=== PATIENT | male | born 1955 | race African-American/Black ===

== ENCOUNTER 2017-04-06 09:25 | Emergency (ER) | payer OTHER ==
[2017-04-06 09:33] VITALS: BP 143/97; PULSE 76; TEMP 97.4; BMI 24.3
[2017-04-06] MEDS ORDERED: IBUPROFEN 600 MG TABLET (FP) PO ONE ×2 (09:43→09:47)
--- NOTE | 2017-04-06 09:44 | PDOC ---
History of Present Illness - General Chief Complaint: Pain Stated Complaint: RT NECK, RT SHOULDER PAIN Time Seen by Provider: 04/06/17 09:43 History Source: Patient - History of Present Illness Initial Comments: 04/07/17 07:10 Pt presents to the ED complaining of a 6 day history of pain in the R trapezius radiating to the R shoulder. Denies trauma. Denies fever. Pain is intermittent, sharp, and worse with turning his head to the right. Has had similar pain in the past when he "pulled a muscle", but pain usually resolved within one day. Denies headache. Past History - Past Medical History Allergies/Adverse Reactions: Allergies Allergy/AdvReac Type Severity Reaction Status Date / Time No Known Allergies Allergy Verified 04/06/17 09:27 Home Medications: Ambulatory Orders Ibuprofen [Motrin -] 600 mg PO TID PRN #10 tablet 04/06/17 Anemia: No Cardiac Disorders: No Hx Myocardial Infarction: No CVA: No COPD: No GI Disorders: Yes (hep c) HTN: No HIV: No Seizures: No Other medical history: uses hearing aid - Psycho/Social/Smoking Cessation Hx Anxiety: No Suicidal Ideation: No Smoking History: Never smoked Have you smoked in the past 12 months: No Information on smoking cessation initiated: No Hx Alcohol Use: No Drug/Substance Use Hx: No Substance Use Type: None Hx Substance Use Treatment: No Review of Systems - Review of Systems Able to Perform ROS?: Yes HEENTM: No: Symptoms Reported, See HPI, Eye Pain, Blurred Vision, Tearing, Recent change in vision, Double Vision, Cataracts, Ear Pain, Ear Discharge, Nose Congestion, Hearing Loss, Throat Pain, Throat Swelling, Mouth Pain, Dental Problems, Difficulty Swallowing, Mouth Swelling, Other Respiratory: No: Symptoms reported, See HPI, Cough, Orthopnea, Shortness of Breath, SOB with Exertion, SOB at Rest, Stridor, Wheezing, Productive cough, Hemoptysis, Other ABD/GI: No: Symptoms Reported, See HPI, Abdominal Distended, Abd. Pain w/ defecation, Blood Streaked Bowels, Constipated, Diarrhea, Difficulty Swallowing , Nausea, Poor Appetite, Poor Fluid Intake, Rectal Bleeding, Vomiting, Indigestion, Abdominal cramping, Tarry Stools, Other Neurological: No: Symptoms reported, See HPI, Headache, Numbness, Paresthesia, Pre-Existing Deficit, Seizure, Tingling, Tremors, Weakness, Unsteady Gait, Ataxia, Dizziness, Other All Other Systems: Reviewed and Negative *Physical Exam - Vital Signs Last Vital Signs Temp Pulse Resp BP Pulse Ox 97.4 F L 76 18 143/97 97 04/06/17 09:25 04/06/17 09:25 04/06/17 09:25 04/06/17 09:25 04/06/17 09:25 - Physical Exam General Appearance: Yes: Nourished, Appropriately Dressed HEENT: positive: EOMI, HELLEN. negative: Normal ENT Inspection, Normal Voice, Symmetrical, TMs Normal, Pharynx Normal, Pale Conjunctivae, Photophobia, Scleral Icterus (R), Scleral Icterus (L), Muffled/Hoarse voice, Pharyngeal Erythema, Tonsillar Exudate, Tonsillar Erythema, Nasal Congestion, Rhinorrhea, Sinus Tenderness, Orbits, Hearing Decreased, Hearing Grossly Normal, TM Bulging , TM Dull, TM Erythema, Lesions, Nelson, Excessive drooling, Thrush, Other Neck: positive: Trachea midline, Supple Respiratory/Chest: positive: Lungs Clear, Normal Breath Sounds Cardiovascular: positive: Regular Rhythm, Regular Rate, S1, S2 Gastrointestinal/Abdominal: positive: Normal Bowel Sounds, Flat, Soft. negative : Tender, Organomegaly, Pulsatile Mass, Increased Bowel Sounds, Decreased BS, Protuberent, Distended, Guarding, Rebound, Tenderness, Hernia, Mass, Hepatomegaly, Spleenomegaly, Other Musculoskeletal: positive: Normal Inspection Extremity: positive: Normal Capillary Refill, Normal Inspection Neurologic: positive: tier and detonator II-XII NML intact, Fully Oriented, Alert, Normal Mood/ Affect, Motor Strength 5/5 *DC/Admit/Observation/Transfer Diagnosis at time of Disposition: Neck pain - Discharge Dispostion Disposition: HOME Condition at time of disposition: Good Admit: No - Prescriptions Prescriptions: Ibuprofen [Motrin -] 600 mg PO TID PRN #10 tablet PRN Reason: Pain - Patient Instructions Printed Discharge Instructions: DI for Neck Pain Additional Instructions: Return to the ED for severe pain, pain with fever, severe headache, new or worsening symptoms.
== END 2017-04-06 10:20 | disposition home or self-care (01) ==
LOC: FER 09:25
DX: M54.2 Cervicalgia (principal); B19.20 Unspecified viral hepatitis C without hepatic coma
CPT/HCPCS: 99283-25

== ENCOUNTER 2022-05-08 10:26 | Inpatient (IN) | payer OTHER ==
[2022-05-08 12:08] VITALS: BMI 24.4
[2022-05-08] MEDS ORDERED: LOPERAMIDE HCL 2 MG CAPSULE PO PRN (12:20)
[2022-05-08] MEDS ORDERED: LORazepam 1 MG TABLET PO PRN (12:20)
[2022-05-08] MEDS ORDERED: ONDANSETRON *ODT* 4 MG TABLET SL PRN (12:20)
[2022-05-08] MEDS ORDERED: NICOTINE 10 MG CARTRIDGE (INHALER) IH PRN (12:20)
[2022-05-08] MEDS ORDERED: IBUPROFEN 400 MG TABLET (FP) PO PRN (12:20)
[2022-05-08] MEDS ORDERED: MAGNESIUM CITRATE 300 ML BOTTLE PO PRN (12:20)
[2022-05-08] MEDS ORDERED: cloNIDine HCL 0.1 MG TABLET PO PRN (12:20)
[2022-05-08] MEDS ORDERED: BISMUTH SUBSALICYLATE 262 MG/15 ML BTL PO PRN (12:20)
[2022-05-08] MEDS ORDERED: BENZOCAINE/MENTHOL (CHLORASEPTIC ) LOZENGE MM PRN (12:20)
[2022-05-08] MEDS ORDERED: methaDONE HCL 10 MG TABLET (FOR DETOX USE ONLY) PO ONE (12:20)
[2022-05-08] MEDS ORDERED: IBUPROFEN 600 MG TABLET (FP) PO PRN (12:20)
[2022-05-08] MEDS ORDERED: ACETAMINOPHEN 325 MG TABLET (FP) PO PRN ×2 (12:20)
[2022-05-08] MEDS ORDERED: DICYCLOMINE HCL 10 MG CAPSULE PO PRN (12:20)
[2022-05-08] MEDS ORDERED: MAG HYDROX/AL HYDROX/SIMETH 30 ML UNIT-DOSE CUP PO PRN (12:20)
[2022-05-08] MEDS ORDERED: NALOXONE HCL (KLOXXADO) 8 MG SPRAY NS PRN (12:20)
[2022-05-08] MEDS ORDERED: LORazepam 2 MG TABLET ONE (13:01)
[2022-05-08] MEDS ORDERED: methaDONE HCL 10 MG TABLET (FOR DETOX USE ONLY) ONE (13:01)
[2022-05-08] MEDS ORDERED: cloNIDine HCL 0.1 MG TABLET ONE (13:01)
[2022-05-08] MEDS: LORazepam 2 MG TABLET PO SCH ×3 (13:05→22:18)
[2022-05-08] MEDS: NICOTINE 21 MG/24 HOURS TOPICAL PATCH TD SCH (13:34)
[2022-05-08] MEDS: METHOCARBAMOL 500 MG TABLET PO PRN (17:42)
[2022-05-08] MEDS: MEMANTINE HCL 5 MG TABLET (UD) PO SCH (22:17)
[2022-05-08] MEDS: cloNIDine HCL 0.1 MG TABLET PO SCH (22:17)
[2022-05-08] MEDS: MELATONIN 5 MG TABLETS PO SCH (22:17)
[2022-05-08] MEDS: THIAMINE HCL 100 MG TABLET (FP) PO SCH (22:17)
[2022-05-08] MEDS: hydrOXYzine PAMOATE 25 MG CAPSULE (FP) PO PRN (22:21)
[2022-05-09] MEDS: LORazepam 2 MG TABLET PO SCH ×4 (06:26→22:26)
[2022-05-09] MEDS: MEMANTINE HCL 5 MG TABLET (UD) PO SCH ×2 (09:47→22:27)
[2022-05-09] MEDS: ASPIRIN 81 MG CHEWABLE TABLETS PO SCH (09:48)
[2022-05-09] MEDS: cloNIDine HCL 0.1 MG TABLET PO SCH ×2 (09:48→22:25)
[2022-05-09] MEDS: PRENATAL VITAMINS W/ FOLIC ACID TABLET (FP) PO SCH (09:49)
[2022-05-09] MEDS: NICOTINE 21 MG/24 HOURS TOPICAL PATCH TD SCH (09:50)
[2022-05-09 12:50] LABS: HEMATOCRIT 36.1 % (35.4-49); MCH 28.3 pg (25.7-33.7); MCHC 33.2 g/dl (32.0-35.9); MEAN PLT VOLUME 9.6 fl (7.5-11.1); PLATELET COUNT 232 10^3/uL (134-434); RBC 4.25 M/mm3 (4.00-5.60); RDW 12.8 % (11.9-15.9); WHITE BLOOD COUNT 7.5 K/mm3 (4.0-10.0)
[2022-05-09 13:01] LABS: ALBUMIN 3.9 g/dl (3.4-5.0); BLOOD UREA NITROGEN 21.3 mg/dL (7-18); CALCIUM 8.9 mg/dL (8.5-10.1)
[2022-05-09] MEDS ORDERED: traZODone HCL 50 MG TABLET (FP) PO PRN (13:02)
[2022-05-09 13:03] LABS: CREATININE 1.4 mg/dL (0.55-1.3)
[2022-05-09] MEDS ORDERED: COLLOIDAL OATMEAL 1 BAR EACH TP PRN (13:03)
[2022-05-09 13:05] LABS: BILIRUBIN,TOTAL 0.4 mg/dL (0.2-1); TOT PROT 7.4 g/dl (6.4-8.2)
[2022-05-09] MEDS: METHOCARBAMOL 500 MG TABLET PO PRN (17:37)
[2022-05-09] MEDS: hydrOXYzine PAMOATE 25 MG CAPSULE (FP) PO PRN ×2 (17:37→20:41)
[2022-05-09] MEDS: THIAMINE HCL 100 MG TABLET (FP) PO SCH (22:25)
[2022-05-09] MEDS: MELATONIN 5 MG TABLETS PO SCH (22:27)
[2022-05-10] MEDS: LORazepam 1 MG TABLET PO SCH ×4 (05:13→23:16)
[2022-05-10] MEDS: MAGNESIUM HYDROX 2400MG/30ML ORAL SUSPENSION 30 ML CUP PO PRN ×2 (05:14→14:51)
[2022-05-10] MEDS ORDERED: ONDANSETRON *ODT* 4 MG TABLET SL ONE (09:49)
[2022-05-10] MEDS ORDERED: methaDONE HCL 10 MG TABLET (FOR DETOX USE ONLY) PO ONE (10:00)
[2022-05-10] MEDS: NICOTINE 21 MG/24 HOURS TOPICAL PATCH TD SCH (10:12)
[2022-05-10] MEDS: PRENATAL VITAMINS W/ FOLIC ACID TABLET (FP) PO SCH (10:12)
[2022-05-10] MEDS: ASPIRIN 81 MG CHEWABLE TABLETS PO SCH (10:13)
[2022-05-10] MEDS: cloNIDine HCL 0.1 MG TABLET PO SCH ×2 (10:14→23:18)
[2022-05-10] MEDS: METHOCARBAMOL 500 MG TABLET PO PRN (10:14)
[2022-05-10] MEDS: MEMANTINE HCL 5 MG TABLET (UD) PO SCH ×2 (10:16→23:18)
[2022-05-10 21:28] VITALS: BP 128/73; PULSE 83; RESP 18; TEMP 97.1
[2022-05-10] MEDS ORDERED: traZODone HCL 100 MG TABLET (FP) PO SCH (22:00)
[2022-05-10] MEDS ORDERED: LORazepam 2 MG/ML SDV VIAL IM SCH (22:05)
[2022-05-10] MEDS: THIAMINE HCL 100 MG TABLET (FP) PO SCH (23:18)
[2022-05-11] MEDS ORDERED: LORazepam 0.5 MG TABLET PO PRN
[2022-05-11] MEDS ORDERED: LORazepam 0.5 MG TABLET PO SCH (05:00)
[2022-05-12] MEDS ORDERED: LORazepam 0.5 MG TABLET PO ONE (05:00)
[2022-05-12] MEDS ORDERED: methaDONE HCL 10 MG TABLET (FOR DETOX USE ONLY) PO ONE (10:00)
== END 2022-05-11 07:41 | disposition short-term general hospital (02) | DRG 897 ==
LOC: EDSEX → YASAS 10:26 → Y6N 13:02
PROVIDERS: ADMIT Allergy & Immunology; ATTEND Family Medicine Addiction Medicine
PROC: HZ2ZZZZ Detoxification Services for Substance Abuse Treatment (ICD-10-PCS; principal; 2022-05-08)
DX: F11.23 Opioid dependence with withdrawal (principal); F19.282 Other psychoactive substance dependence with psychoactive substance-induced sleep disorder; F19.280 Other psychoactive substance dependence with psychoactive substance-induced anxiety disorder; F10.230 Alcohol dependence with withdrawal, uncomplicated; F12.20 Cannabis dependence, uncomplicated; F17.210 Nicotine dependence, cigarettes, uncomplicated; F20.9 Schizophrenia, unspecified; F19.24 Other psychoactive substance dependence with psychoactive substance-induced mood disorder; G40.909 Epilepsy, unspecified, not intractable, without status epilepticus; I10 Essential (primary) hypertension; G30.9 Alzheimer's disease, unspecified; Z86.73 Personal history of transient ischemic attack (TIA), and cerebral infarction without residual deficits; Z86.19 Personal history of other infectious and parasitic diseases; Z91.410 Personal history of adult physical and sexual abuse
CPT/HCPCS: 36415; 80053; 85027; 86780; 93005; 93010; C9803-CS; Q0162; U0003; U0005

== ENCOUNTER 2022-05-10 22:48 | Inpatient (IN) | payer OTHER ==
[2022-05-10 23:09] VITALS: BMI 24.3
[2022-05-10] MEDS ORDERED: FOSPHENYTOIN SODIUM 100 MG/2 ML VIAL IVPUSH ONE (23:14)
[2022-05-10] MEDS ORDERED: levETIRAcetam 500 MG/5 ML INJECTION VIAL IVPB ONE ×2 (23:16)
[2022-05-10 23:35] LABS: BASO % 0.5 % (0-2.0); EOS % 2.9 % (0-4.5); HEMATOCRIT 35.3 % (35.4-49); HEMOGLOBIN 11.8 GM/dL (11.7-16.9); LYMPH % 40.3 % (8-40); MCH 28.1 pg (25.7-33.7); MCHC 33.5 g/dl (32.0-35.9); MEAN PLT VOLUME 7.7 fl (7.5-11.1); NEUT % 49.3 % (42.8-82.8); PLATELET COUNT 208 10^3/uL (134-434); RDW 12.7 % (11.9-15.9)
[2022-05-10 23:42] LABS: INR 0.95 (0.83-1.09); PROTHROMBIN TIME (PATIENT) 10.9 SEC (9.7-13.0)
[2022-05-10 23:45] LABS: ACTIVATED PTT 32.7 SECONDS (25.2-36.5)
[2022-05-10 23:57] LABS: ALBUMIN 3.5 g/dl (3.4-5.0); BLOOD UREA NITROGEN 27.3 mg/dL (7-18); CALCIUM 8.6 mg/dL (8.5-10.1); MAGNESIUM 2.4 mg/dL (1.8-2.4)
[2022-05-11] LABS: CREATININE 1.4 mg/dL (0.55-1.3)
[2022-05-11 00:02] LABS: BILIRUBIN,TOTAL 0.4 mg/dL (0.2-1); TOT PROT 6.9 g/dl (6.4-8.2)
[2022-05-11 07:26] LABS: HEMATOCRIT 33.5 % (32.4-45.2); HEMOGLOBIN 11.3 GM/dL (10.7-15.3); MCH 28.2 pg (25.7-33.7); MCHC 33.6 g/dl (32.0-36.0); MEAN PLT VOLUME 8.1 fl (7.5-11.1); PLATELET COUNT 172 10^3/uL (134-434); RBC 3.99 M/mm3 (3.60-5.2); RDW 12.6 % (11.6-15.6); WHITE BLOOD COUNT 6.3 K/mm3 (4.0-10.0)
[2022-05-11 07:48] LABS: CALCIUM 8.4 mg/dL (8.5-10.1)
[2022-05-11 07:49] LABS: BLOOD UREA NITROGEN 21.8 mg/dL (7-18); MAGNESIUM 2.5 mg/dL (1.8-2.4)
[2022-05-11 07:52] LABS: CREATININE 1.4 mg/dL (0.55-1.3); PHOSPHOROUS 3.8 mg/dL (2.5-4.9)
[2022-05-11 07:54] VITALS: RESP 14; TEMP 98
[2022-05-11] MEDS ORDERED: LORazepam 1 MG TABLET PO PRN (08:22)
[2022-05-11] MEDS ORDERED: FOLIC ACID INJECTION - 1 MG, THIAMINE HCL 100 MG, MULTIVIT INJECTION ADULT 10 ML in SOD... IVPB ONE (08:23)
[2022-05-11] MEDS ORDERED: SODIUM CHLORIDE 1,000 ML IV SCH (08:30)
[2022-05-11] MEDS ORDERED: FOLIC ACID 1 MG TABLET (FP) ONE (09:43)
[2022-05-11] MEDS ORDERED: THIAMINE HCL 100 MG TABLET (FP) ONE (09:43)
[2022-05-11] MEDS ORDERED: cloNIDine HCL 0.1 MG TABLET ONE (09:43)
[2022-05-11] MEDS ORDERED: ASPIRIN 81 MG CHEWABLE TABLETS ONE (09:43)
[2022-05-11] MEDS ORDERED: ENOXAPARIN NA (PORCINE) 40 MG/0.4 ML DISP.SYRIN SQ ONE (09:44)
[2022-05-11] MEDS ORDERED: MULTIVITAMINS (DAILY MVI) TABLET (FP) ONE (09:44)
[2022-05-11] MEDS ORDERED: MEMANTINE HCL 5 MG TABLET (UD) PO SCH (10:00)
[2022-05-11] MEDS ORDERED: ASPIRIN 81 MG CHEWABLE TABLETS PO SCH (10:00)
[2022-05-11] MEDS ORDERED: THIAMINE HCL 100 MG TABLET (FP) PO SCH (10:00)
[2022-05-11] MEDS ORDERED: cloNIDine HCL 0.1 MG TABLET PO SCH (10:00)
[2022-05-11] MEDS ORDERED: MULTIVITAMINS (DAILY MVI) TABLET (FP) PO SCH (10:00)
[2022-05-11] MEDS ORDERED: ENOXAPARIN NA (PORCINE) 40 MG/0.4 ML DISP.SYRIN SQ SCH (10:00)
[2022-05-11] MEDS ORDERED: FOLIC ACID 1 MG TABLET (FP) PO SCH (10:00)
[2022-05-11] MEDS ORDERED: methaDONE HCL 10 MG TABLET ONE (10:00)
[2022-05-11] MEDS ORDERED: LORazepam 1 MG TABLET ONE (10:33)
[2022-05-11] MEDS ORDERED: LORazepam 2 MG TABLET PO SCH (11:00)
[2022-05-11 14:34] VITALS: BP 109/72; PULSE 77
[2022-05-11] MEDS ORDERED: levETIRAcetam 250 MG TABLET PO SCH (22:00)
[2022-05-11] MEDS ORDERED: levETIRAcetam 500 MG/5 ML INJECTION VIAL IVPB SCH (23:00)
[2022-05-13] MEDS ORDERED: LORazepam 1 MG TABLET PO SCH (05:00)
[2022-05-14] MEDS ORDERED: LORazepam 0.5 MG TABLET PO PRN
[2022-05-14] MEDS ORDERED: LORazepam 0.5 MG TABLET PO SCH (05:00)
[2022-05-15] MEDS ORDERED: LORazepam 0.5 MG TABLET PO ONE (05:00)
== END 2022-05-11 14:50 | disposition other institution (70) | DRG 101 ==
LOC: EDSEX 22:48 → JER 22:48 → JERBED 05-11 00:40
PROVIDERS: ADMIT Internal Medicine; ATTEND Nurse Practitioner Acute Care
PROC: HZ2ZZZZ Detoxification Services for Substance Abuse Treatment (ICD-10-PCS; principal; 2022-05-10)
DX: R56.9 Unspecified convulsions (principal); I10 Essential (primary) hypertension; E78.5 Hyperlipidemia, unspecified; F19.10 Other psychoactive substance abuse, uncomplicated; G62.9 Polyneuropathy, unspecified
CPT/HCPCS: 36415; 71045-TC-FY; 76775-TC; 80048; 80053; 80184; 80307; 82550; 82553; 82962; 83605; 83735; 84100; 84484; 85025; 85027; 85610; 85730; 93005; 93010; 99285-25; C9803-CS; U0003; U0005

== ENCOUNTER 2022-05-11 15:51 | Inpatient (IN) | payer OTHER ==
[~2022-05-11 15:51] MED LIST: methaDONE HCL 10 MG TABLET (FOR DETOX USE ONLY) PO ONE
[2022-05-11 16:34] VITALS: BMI 25.7
[2022-05-11] MEDS ORDERED: MAGNESIUM CITRATE 300 ML BOTTLE PO PRN (16:47)
[2022-05-11] MEDS ORDERED: BENZOCAINE/MENTHOL (CHLORASEPTIC ) LOZENGE MM PRN (16:47)
[2022-05-11] MEDS ORDERED: ONDANSETRON *ODT* 4 MG TABLET SL PRN (16:47)
[2022-05-11] MEDS ORDERED: NICOTINE 10 MG CARTRIDGE (INHALER) IH PRN (16:47)
[2022-05-11] MEDS ORDERED: BISMUTH SUBSALICYLATE 524 MG/30 ML PO PRN (16:47)
[2022-05-11] MEDS ORDERED: IBUPROFEN 400 MG TABLET (FP) PO PRN (16:47)
[2022-05-11] MEDS ORDERED: IBUPROFEN 600 MG TABLET (FP) PO PRN (16:47)
[2022-05-11] MEDS ORDERED: NALOXONE HCL (KLOXXADO) 8 MG SPRAY NS PRN (16:47)
[2022-05-11] MEDS ORDERED: ACETAMINOPHEN 325 MG TABLET (FP) PO PRN ×2 (16:47)
[2022-05-11] MEDS ORDERED: DICYCLOMINE HCL 10 MG CAPSULE PO PRN (16:47)
[2022-05-11] MEDS ORDERED: MAG HYDROX/AL HYDROX/SIMETH 30 ML UNIT-DOSE CUP PO PRN (16:47)
[2022-05-11] MEDS ORDERED: MAGNESIUM HYDROX 2400MG/30ML ORAL SUSPENSION 30 ML CUP PO PRN (16:47)
[2022-05-11] MEDS ORDERED: LOPERAMIDE HCL 2 MG CAPSULE PO PRN ×2 (16:47→18:31)
[2022-05-11] MEDS: hydrOXYzine PAMOATE 25 MG CAPSULE (FP) PO SCH ×2 (17:50→22:52)
[2022-05-11] MEDS: LORazepam 1 MG TABLET PO SCH ×4 (17:50→22:53)
[2022-05-11] MEDS: ASPIRIN 81 MG CHEWABLE TABLETS PO SCH (17:50)
[2022-05-11] MEDS: THIAMINE HCL 100 MG TABLET (FP) PO SCH ×2 (17:51→22:52)
[2022-05-11] MEDS: MULTIVITAMINS (DAILY MVI) TABLET (FP) PO SCH (17:51)
[2022-05-11] MEDS: PRENATAL VITAMINS W/ FOLIC ACID TABLET (FP) PO SCH (18:24)
[2022-05-11] MEDS ORDERED: methaDONE HCL 10 MG TABLET PO ONE (18:33)
[2022-05-11] MEDS: levETIRAcetam 250 MG TABLET PO SCH (22:51)
[2022-05-11] MEDS: FOLIC ACID 1 MG TABLET (FP) PO SCH (22:52)
[2022-05-11] MEDS: cloNIDine HCL 0.1 MG TABLET PO SCH (22:52)
[2022-05-11] MEDS: MELATONIN 5 MG TABLETS PO SCH (22:52)
[2022-05-11] MEDS: MEMANTINE HCL 5 MG TABLET (UD) PO SCH (22:54)
[2022-05-12] MEDS: LORazepam 0.5 MG TABLET PO SCH ×4 (06:01→22:24)
[2022-05-12] MEDS: hydrOXYzine PAMOATE 25 MG CAPSULE (FP) PO SCH ×5 (07:13→22:25)
[2022-05-12] MEDS: ASPIRIN 81 MG CHEWABLE TABLETS PO SCH (09:53)
[2022-05-12] MEDS: levETIRAcetam 250 MG TABLET PO SCH ×2 (09:53→22:25)
[2022-05-12] MEDS: cloNIDine HCL 0.1 MG TABLET PO SCH ×2 (09:53→22:22)
[2022-05-12] MEDS: METHOCARBAMOL 500 MG TABLET PO PRN ×2 (09:53→18:04)
[2022-05-12] MEDS: MEMANTINE HCL 5 MG TABLET (UD) PO SCH ×2 (09:54→22:24)
[2022-05-12] MEDS: PRENATAL VITAMINS W/ FOLIC ACID TABLET (FP) PO SCH (09:57)
[2022-05-12] MEDS: THIAMINE HCL 100 MG TABLET (FP) PO SCH ×2 (09:57→22:25)
[2022-05-12] MEDS: MULTIVITAMINS (DAILY MVI) TABLET (FP) PO SCH (11:24)
[2022-05-12 11:34] LABS: CALCIUM 8.7 mg/dL (8.5-10.1)
[2022-05-12 11:35] LABS: ALBUMIN 3.2 g/dl (3.4-5.0); BLOOD UREA NITROGEN 22.2 mg/dL (7-18)
[2022-05-12 11:38] LABS: CREATININE 1.4 mg/dL (0.55-1.3)
[2022-05-12 11:40] LABS: BILIRUBIN,TOTAL 0.8 mg/dL (0.2-1); TOT PROT 6.5 g/dl (6.4-8.2)
[2022-05-12 11:44] LABS: HEMATOCRIT 34.9 % (32.4-45.2); HEMOGLOBIN 11.3 GM/dL (10.7-15.3); MCH 27.9 pg (25.7-33.7); MCHC 32.4 g/dl (32.0-36.0); MEAN CELL VOLUME 86.1 fl (80-96); MEAN PLT VOLUME 9.1 fl (7.5-11.1); PLATELET COUNT 136 10^3/uL (134-434); RBC 4.05 M/mm3 (3.60-5.2); RDW 12.6 % (11.6-15.6); WHITE BLOOD COUNT 4.8 K/mm3 (4.0-10.0)
[2022-05-12] MEDS: FOLIC ACID 1 MG TABLET (FP) PO SCH (12:51)
[2022-05-12] MEDS: cloNIDine HCL 0.1 MG TABLET PO PRN (14:37)
[2022-05-12] MEDS: LORazepam 0.5 MG TABLET PO PRN (15:32)
[2022-05-12] MEDS: MELATONIN 5 MG TABLETS PO SCH (22:23)
[2022-05-13] MEDS: METHOCARBAMOL 500 MG TABLET PO PRN ×2 (01:36→10:18)
[2022-05-13] MEDS: LORazepam 0.5 MG TABLET PO PRN ×2 (01:43→10:19)
[2022-05-13] MEDS ORDERED: LORazepam 0.5 MG TABLET PO ONE (05:00)
[2022-05-13] MEDS: hydrOXYzine PAMOATE 25 MG CAPSULE (FP) PO SCH ×4 (06:01→17:41)
[2022-05-13] MEDS ORDERED: FOLIC ACID 1 MG TABLET (FP) PO SCH (10:00)
[2022-05-13] MEDS ORDERED: methaDONE HCL 10 MG TABLET (FOR DETOX USE ONLY) PO ONE (10:00)
[2022-05-13] MEDS: THIAMINE HCL 100 MG TABLET (FP) PO SCH (10:18)
[2022-05-13] MEDS: levETIRAcetam 250 MG TABLET PO SCH (10:18)
[2022-05-13] MEDS: cloNIDine HCL 0.1 MG TABLET PO SCH (10:18)
[2022-05-13] MEDS: ASPIRIN 81 MG CHEWABLE TABLETS PO SCH (10:18)
[2022-05-13] MEDS: PRENATAL VITAMINS W/ FOLIC ACID TABLET (FP) PO SCH (10:22)
[2022-05-13] MEDS ORDERED: NICOTINE 7 MG/24 HOURS TOPICAL PATCH TD SCH (11:00)
[2022-05-13] MEDS: cloNIDine HCL 0.1 MG TABLET PO PRN (13:45)
[2022-05-13] MEDS: MEMANTINE HCL 5 MG TABLET (UD) PO SCH (13:46)
[2022-05-13] MEDS ORDERED: LORazepam 2 MG/ML SDV VIAL IM ONE (20:45)
[2022-05-13 21:30] VITALS: BP 145/99; PULSE 94
[2022-05-13 23:43] VITALS: RESP 20; TEMP 97
[2022-05-14] MEDS ORDERED: ACETAMINOPHEN 1000 MG/100 ML BAG IVPB ONE (01:27)
[2022-05-14] MEDS ORDERED: HEPARIN NA (PORCINE) 5,000 UNITS/ML 1ML VIAL SQ SCH (06:00)
== END 2022-05-13 23:50 | disposition short-term general hospital (02) | DRG 897 ==
LOC: YASAS 15:51 → Y6N 17:15
PROVIDERS: ADMIT Allergy & Immunology; ATTEND Surgery
PROC: HZ2ZZZZ Detoxification Services for Substance Abuse Treatment (ICD-10-PCS; principal; 2022-05-11)
DX: F11.23 Opioid dependence with withdrawal (principal); F10.230 Alcohol dependence with withdrawal, uncomplicated; F17.210 Nicotine dependence, cigarettes, uncomplicated; G40.909 Epilepsy, unspecified, not intractable, without status epilepticus; G30.9 Alzheimer's disease, unspecified; I10 Essential (primary) hypertension; W19.XXXA Unspecified fall, initial encounter; Y93.89 Activity, other specified; Y92.238 Other place in hospital as the place of occurrence of the external cause
CPT/HCPCS: 36415; 71045-TC-FY; 76775-TC; 80048; 80053; 80184; 80307; 82550; 82553; 82962; 83605; 83735; 84100; 84484; 85025; 85027; 85610; 85730; 86780; 93005; 93010; 99285-25; C9803-CS; U0003; U0005

== ENCOUNTER 2022-05-13 20:48 | Inpatient (IN) | payer OTHER ==
[2022-05-13] MEDS ORDERED: LORazepam 2 MG/ML SDV VIAL IVPUSH ONE (20:52)
[2022-05-13] MEDS ORDERED: ACETAMINOPHEN 1000 MG/100 ML BAG IVPB ONE (21:13)
[2022-05-13] MEDS ORDERED: levETIRAcetam 500 MG/5 ML INJECTION VIAL IVPB ONE ×2 (21:13→21:16)
[2022-05-13] MEDS ORDERED: SODIUM CHLORIDE 0.9% 500 ML INFUS.BAG IV ONE (21:13)
[2022-05-13] MEDS ORDERED: VALPROATE SODIUM 500 MG/5 ML VIAL ONE (21:57)
[2022-05-13] MEDS ORDERED: ACETAMINOPHEN INJECTION 100 ML IVPB ONE (21:58)
[2022-05-13] MEDS ORDERED: VALPROATE SODIUM 500 MG/5 ML VIAL IVPB SCH (22:00)
[2022-05-13 22:03] LABS: BASO % 0.5 % (0-2.0); EOS % 1.5 % (0-4.5); HEMOGLOBIN 12.9 GM/dL (10.7-15.3); LYMPH % 27.1 % (8-40); MCH 27.1 pg (25.7-33.7); MCHC 32.2 g/dl (32.0-36.0); MEAN CELL VOLUME 84.2 fl (80-96); MEAN PLT VOLUME 8.4 fl (7.5-11.1); MONO % 6.1 % (3.8-10.2); NEUT % 64.8 % (42.8-82.8); PLATELET COUNT 229 10^3/uL (134-434); RBC 4.75 M/mm3 (3.60-5.2); RDW 12.6 % (11.6-15.6); WHITE BLOOD COUNT 8.3 K/mm3 (4.0-10.0)
[2022-05-13 22:19] LABS: CALCIUM 8.7 mg/dL (8.5-10.1)
[2022-05-13 22:20] LABS: ALBUMIN 3.6 g/dl (3.4-5.0); BLOOD UREA NITROGEN 26.5 mg/dL (7-18); MAGNESIUM 2.4 mg/dL (1.8-2.4)
[2022-05-13 22:23] LABS: CREATININE 1.8 mg/dL (0.55-1.3)
[2022-05-13 22:24] LABS: LACTIC ACID 2.8 mmol/L (0.4-2.0)
[2022-05-13 22:24] LABS: BILIRUBIN,TOTAL 0.2 mg/dL (0.2-1); TOT PROT 7.1 g/dl (6.4-8.2)
[2022-05-14 02:32] LABS: EPI CELLS 31 /uL (0-25.1); HYALINE CASTS 0 /uL (0-3.1); URINE APPEARANCE CLEAR; URINE BACTERIA 162 /uL (0-1359); URINE BILIRUBIN NEGATIVE (NEGATIVE); URINE COLOR YELLOW; URINE GLUCOSE (UA) NEGATIVE (NEGATIVE); URINE KETONE NEGATIVE (NEGATIVE); URINE LEUK ESTERASE 2+ (NEGATIVE); URINE NITRITE NEGATIVE (NEGATIVE); URINE PROTEIN NEGATIVE (NEGATIVE); URINE RBC 24 /uL (0-23.9); URINE UROBILINOGEN 0.2 mg/dL (0.2-1.0); URINE WBC 33 /uL (0-25.8)
[2022-05-14] MEDS ORDERED: ACETAMINOPHEN/CAFFEINE/BUTALBITAL 1 TAB PO ONE (02:33)
[2022-05-14] MEDS ORDERED: cloNIDine HCL 0.1 MG TABLET PO ONE (02:41)
[2022-05-14] MEDS ORDERED: LACTATED RINGERS SOLUTION 1,000 ML/1,000 ML INFUS.BAG IV SCH ×2 (02:45→02:49)
[2022-05-14] MEDS ORDERED: cloNIDine HCL 0.1 MG TABLET ONE ×2 (02:47→11:35)
[2022-05-14] MEDS ORDERED: ACETAMINOPHEN/CAFFEINE/BUTALBITAL 1 TAB ONE (02:47)
[2022-05-14] MEDS ORDERED: CEFTRIAXONE 1 GM in DEXTROSE 5%-WATER - 50 ML IVPB ONE (03:34)
[2022-05-14] MEDS ORDERED: LORazepam 1 MG TABLET PO PRN (03:45)
[2022-05-14] MEDS ORDERED: FOLIC ACID INJECTION - 1 MG, THIAMINE HCL 100 MG, MULTIVIT INJECTION ADULT 10 ML in SOD... IVPB ONE (06:00)
[2022-05-14] MEDS ORDERED: LORazepam 1 MG TABLET ONE ×2 (06:11→11:36)
[2022-05-14] MEDS ORDERED: CEFTRIAXONE 1 GM/50 ML BAG ONE (06:11)
[2022-05-14] MEDS: LORazepam 1 MG TABLET PO SCH ×4 (06:24→23:25)
[2022-05-14] MEDS: HEPARIN NA (PORCINE) 5,000 UNITS/ML 1ML VIAL SQ SCH ×3 (06:24→23:28)
[2022-05-14] MEDS ORDERED: LORazepam 2 MG/ML SDV VIAL IVPUSH ONE (08:55)
[2022-05-14] MEDS ORDERED: KETOROLAC TROMETHAMINE 15 MG/ML VIAL IVPUSH ONE (09:04)
[2022-05-14] MEDS ORDERED: KETOROLAC TROMETHAMINE 15 MG/ML VIAL ONE ×2 (09:11→16:22)
[2022-05-14] MEDS ORDERED: levETIRAcetam 500 MG/5 ML INJECTION VIAL IVPB ONE (09:32)
[2022-05-14] MEDS: levETIRAcetam 500 MG/5 ML INJECTION VIAL IVPB SCH ×2 (09:37→23:24)
[2022-05-14] MEDS ORDERED: levETIRAcetam 500 MG/5 ML INJECTION VIAL IVPB SCH (10:00)
[2022-05-14 10:09] LABS: MAGNESIUM 2.1 mg/dL (1.8-2.4)
[2022-05-14 10:11] LABS: PHOSPHOROUS 3.6 mg/dL (2.5-4.9)
[2022-05-14 10:22] LABS: LACTIC ACID 2.3 mmol/L (0.4-2.0)
[2022-05-14] MEDS: cloNIDine HCL 0.1 MG TABLET PO SCH ×2 (11:40→23:24)
[2022-05-14] MEDS: TOPIRAMATE 100 MG TABLET PO SCH ×2 (11:40→23:26)
[2022-05-14] MEDS ORDERED: SUMAtriptan SUCCINATE 25 MG TABLET PO ONE (12:45)
[2022-05-14] MEDS ORDERED: IBUPROFEN 600 MG TABLET (FP) PO PRN (12:46)
[2022-05-14] MEDS ORDERED: SUMAtriptan SUCCINATE 50 MG TABLET ONE (12:51)
[2022-05-14] MEDS: ACETAMINOPHEN 1000 MG/100 ML BAG IVPB PRN ×2 (12:55→19:54)
[2022-05-14 13:21] LABS: PHENCYCLIDINE,URINE NEGATIVE (NEGATIVE); URINE BARBITURATES NEGATIVE (NEGATIVE); URINE BENZODIAZEPINES NEGATIVE (NEGATIVE)
[2022-05-14 13:22] LABS: COCAINE, UR NEGATIVE (NEGATIVE); METHADONE, UR NEGATIVE (NEGATIVE); OPIATES, URI NEGATIVE (NEGATIVE)
[2022-05-14 13:25] LABS: URINE AMPHETAMINES NEGATIVE (NEGATIVE)
[2022-05-14] MEDS ORDERED: traMADol HCL 50 MG TABLET ONE ×2 (15:26→21:07)
[2022-05-14] MEDS: traMADol HCL 50 MG TABLET PO PRN ×2 (15:28→21:42)
[2022-05-14] MEDS ORDERED: HEPARIN NA (PORCINE) 5,000 UNITS/ML 1ML VIAL ONE (15:29)
[2022-05-14] MEDS ORDERED: KETOROLAC TROMETHAMINE 30 MG/1 ML VIAL IVPUSH PRN (15:42)
[2022-05-14] MEDS ORDERED: KETOROLAC TROMETHAMINE 30 MG/1 ML VIAL IVPUSH ONE (15:47)
[2022-05-14] MEDS ORDERED: ACETAMINOPHEN INJECTION 100 ML IVPB ONE (19:48)
[2022-05-14] MEDS: SODIUM CHLORIDE 1,000 ML IV SCH (23:24)
[2022-05-15] MEDS: traMADol HCL 50 MG TABLET PO PRN (04:51)
[2022-05-15] MEDS: LORazepam 1 MG TABLET PO SCH ×4 (05:53→22:07)
[2022-05-15] MEDS: HEPARIN NA (PORCINE) 5,000 UNITS/ML 1ML VIAL SQ SCH ×3 (05:54→22:07)
[2022-05-15] MEDS ORDERED: LORazepam 2 MG/ML SDV VIAL IVPUSH ONE ×3 (09:00→10:45)
[2022-05-15] MEDS ORDERED: levETIRAcetam 500 MG/5 ML INJECTION VIAL IVPB ONE (09:36)
[2022-05-15] MEDS ORDERED: LORazepam 2 MG/ML SDV VIAL IM ONE (09:39)
[2022-05-15] MEDS ORDERED: FOSPHENYTOIN SODIUM 100 MG/2 ML VIAL IVPUSH ONE (09:44)
[2022-05-15] MEDS ORDERED: FOSPHENYTOIN SODIUM IVPB ONE ×2 (10:00)
[2022-05-15] MEDS ORDERED: SODIUM CHLORIDE IVPB ONE ×2 (10:00)
[2022-05-15] MEDS ORDERED: RAPID SEQUENCE INTUBATION KIT NR ONE (10:31)
[2022-05-15] MEDS: CEFTRIAXONE 1 GM in DEXTROSE 5%-WATER - 50 ML IVPB SCH (10:42)
[2022-05-15] MEDS: levETIRAcetam 500 MG/5 ML INJECTION VIAL IVPB SCH ×2 (10:42→22:07)
[2022-05-15] MEDS: cloNIDine HCL 0.1 MG TABLET PO SCH ×2 (11:00→22:06)
[2022-05-15] MEDS: SODIUM CHLORIDE 1,000 ML IV SCH ×2 (11:05→15:59)
[2022-05-15] MEDS: TOPIRAMATE 100 MG TABLET PO SCH ×2 (12:15→22:07)
[2022-05-15 12:26] LABS: BASO % 0.7 % (0-2.0); EOS % 1.4 % (0-4.5); HEMATOCRIT 36.4 % (32.4-45.2); HEMOGLOBIN 11.6 GM/dL (10.7-15.3); LYMPH % 25.9 % (8-40); MCH 26.8 pg (25.7-33.7); MEAN CELL VOLUME 83.9 fl (80-96); MONO % 5.2 % (3.8-10.2); NEUT % 66.8 % (42.8-82.8); PLATELET COUNT 207 10^3/uL (134-434); RBC 4.34 M/mm3 (3.60-5.2); RDW 12.6 % (11.6-15.6); WHITE BLOOD COUNT 5.5 K/mm3 (4.0-10.0)
[2022-05-15 13:22] LABS: ALBUMIN 3.8 g/dl (3.4-5.0); BLOOD UREA NITROGEN 22.2 mg/dL (7-18); MAGNESIUM 2.2 mg/dL (1.8-2.4)
[2022-05-15 13:23] LABS: CREATININE 1.6 mg/dL (0.55-1.3)
[2022-05-15 13:24] LABS: TOT PROT 7.1 g/dl (6.4-8.2)
[2022-05-15 13:25] LABS: BILIRUBIN,TOTAL 0.4 mg/dL (0.2-1)
[2022-05-15 14:08] LABS: PHOSPHOROUS 3.7 mg/dL (2.5-4.9)
[2022-05-15] MEDS: FAMOTIDINE 20 MG TABLET PO SCH (15:59)
[2022-05-15] MEDS ORDERED: MELATONIN 5 MG TABLETS PO PRN (22:37)
[2022-05-16] MEDS ORDERED: LORazepam 0.5 MG TABLET PO PRN
[2022-05-16] MEDS: ACETAMINOPHEN 325 MG TABLET (FP) PO PRN ×2 (01:37→18:52)
[2022-05-16] MEDS: HEPARIN NA (PORCINE) 5,000 UNITS/ML 1ML VIAL SQ SCH ×3 (06:05→21:17)
[2022-05-16] MEDS: LORazepam 0.5 MG TABLET PO SCH ×4 (06:05→22:42)
[2022-05-16] MEDS ORDERED: LORazepam 2 MG/ML SDV VIAL IVPUSH ONE (07:59)
[2022-05-16] MEDS ORDERED: ACETAMINOPHEN 1000 MG/100 ML BAG IVPB ONE (08:20)
[2022-05-16] MEDS: CEFTRIAXONE 1 GM in DEXTROSE 5%-WATER - 50 ML IVPB SCH (09:45)
[2022-05-16] MEDS: FAMOTIDINE 20 MG TABLET PO SCH (09:49)
[2022-05-16] MEDS: levETIRAcetam 500 MG/5 ML INJECTION VIAL IVPB SCH (09:49)
[2022-05-16] MEDS: cloNIDine HCL 0.1 MG TABLET PO SCH ×2 (09:49→21:17)
[2022-05-16] MEDS ORDERED: LACTATED RINGERS SOLUTION 1,000 ML/1,000 ML INFUS.BAG IV SCH (10:45)
[2022-05-16] MEDS: TOPIRAMATE 100 MG TABLET PO SCH ×2 (11:00→21:17)
[2022-05-16 11:30] LABS: BASO % 0.5 % (0-2.0); EOS % 1.5 % (0-4.5); HEMATOCRIT 38.3 % (32.4-45.2); HEMOGLOBIN 12.1 GM/dL (10.7-15.3); LYMPH % 11.5 % (8-40); MCH 26.4 pg (25.7-33.7); MCHC 31.5 g/dl (32.0-36.0); MEAN CELL VOLUME 83.8 fl (80-96); NEUT % 81.5 % (42.8-82.8); PLATELET COUNT 217 10^3/uL (134-434); RBC 4.57 M/mm3 (3.60-5.2); RDW 12.8 % (11.6-15.6); WHITE BLOOD COUNT 6.4 K/mm3 (4.0-10.0)
[2022-05-16 11:42] LABS: BLOOD UREA NITROGEN 18.8 mg/dL (7-18); CALCIUM 9.1 mg/dL (8.5-10.1)
[2022-05-16 11:43] LABS: ALBUMIN 3.9 g/dl (3.4-5.0); MAGNESIUM 2.1 mg/dL (1.8-2.4)
[2022-05-16 11:45] LABS: CREATININE 1.5 mg/dL (0.55-1.3); PHOSPHOROUS 3.6 mg/dL (2.5-4.9)
[2022-05-16 11:47] LABS: BILIRUBIN,TOTAL 0.4 mg/dL (0.2-1); TOT PROT 7.5 g/dl (6.4-8.2)
[2022-05-16] MEDS: LORazepam 2 MG/ML SDV VIAL IVPUSH PRN (19:32)
[2022-05-16] MEDS: levETIRAcetam 500 MG TABLET (FP) PO SCH (21:17)
[2022-05-16] MEDS: ACETAMINOPHEN/CAFFEINE/BUTALBITAL 1 TAB PO PRN (22:47)
[2022-05-17] MEDS ORDERED: QUEtiapine FUMARATE 25 MG TABLET PO ONE (00:13)
[2022-05-17] MEDS ORDERED: LORazepam 0.5 MG TABLET PO ONE (05:00)
[2022-05-17] MEDS: HEPARIN NA (PORCINE) 5,000 UNITS/ML 1ML VIAL SQ SCH ×2 (06:01→14:15)
[2022-05-17] MEDS: cloNIDine HCL 0.1 MG TABLET PO SCH (09:35)
[2022-05-17] MEDS: levETIRAcetam 500 MG TABLET (FP) PO SCH (09:37)
[2022-05-17] MEDS: FAMOTIDINE 20 MG TABLET PO SCH (09:37)
[2022-05-17] MEDS: CEFTRIAXONE 1 GM in DEXTROSE 5%-WATER - 50 ML IVPB SCH (09:38)
[2022-05-17] MEDS: TOPIRAMATE 100 MG TABLET PO SCH (09:39)
[2022-05-17] MEDS: LORazepam 2 MG/ML SDV VIAL IVPUSH PRN (10:27)
[2022-05-17] MEDS: ACETAMINOPHEN/CAFFEINE/BUTALBITAL 1 TAB PO PRN (11:59)
[2022-05-17 12:55] VITALS: BMI 24.6
[2022-05-17 13:39] LABS: CALCIUM 9.2 mg/dL (8.5-10.1)
[2022-05-17 13:40] LABS: BLOOD UREA NITROGEN 15.4 mg/dL (7-18)
[2022-05-17 13:43] LABS: CREATININE 1.5 mg/dL (0.55-1.3)
[2022-05-17] MEDS ORDERED: amLODIPine BESYLATE 2.5 MG TABLET (FP) PO SCH (17:15)
[2022-05-17 18:13] VITALS: BP 120/65; PULSE 85; RESP 16; TEMP 98.6
== END 2022-05-17 19:00 | disposition left against medical advice (07) | DRG 101 ==
LOC: JER 20:48 → JERBED 05-14 00:25 → J5S 05-14 21:51 → JICU 05-15 10:13
PROVIDERS: ADMIT Internal Medicine; ATTEND Nurse Practitioner Family
DX: G40.909 Epilepsy, unspecified, not intractable, without status epilepticus (principal); N39.0 Urinary tract infection, site not specified; F11.20 Opioid dependence, uncomplicated; E78.5 Hyperlipidemia, unspecified; I10 Essential (primary) hypertension; H53.19 Other subjective visual disturbances; F10.10 Alcohol abuse, uncomplicated; F17.210 Nicotine dependence, cigarettes, uncomplicated; R51.9 Headache, unspecified
CPT/HCPCS: 0241U-QW; 36415; 70450-TC; 70544-TC; 70551-TC; 71045-TC-FY; 80048; 80053; 80061; 80164; 80307; 81003; 82550; 82553; 82962; 83036; 83605; 83735; 84100; 84443; 85025; 87086; 93005; 93010; 97116-GP; 97162-GP; 99285-25; J1644

== ENCOUNTER 2022-07-07 10:11 | Inpatient (IN) | payer OTHER ==
[2022-07-07 10:43] VITALS: BMI 25.7
[2022-07-07] MEDS ORDERED: LOPERAMIDE HCL 2 MG CAPSULE PO PRN (11:50)
[2022-07-07] MEDS ORDERED: POLYETHYLENE GLYCOL (HEALTHYLAX) 3350 17 GM PACKET PO PRN (11:50)
[2022-07-07] MEDS ORDERED: ONDANSETRON *ODT* 4 MG TABLET SL PRN (11:50)
[2022-07-07] MEDS ORDERED: MAG HYDROX/AL HYDROX/SIMETH 30 ML UNIT-DOSE CUP PO PRN (11:50)
[2022-07-07] MEDS ORDERED: ACETAMINOPHEN 325 MG TABLET (FP) PO PRN ×2 (11:50)
[2022-07-07] MEDS ORDERED: MAGNESIUM HYDROX 2400MG/30ML ORAL SUSPENSION 30 ML CUP PO PRN (11:50)
[2022-07-07] MEDS ORDERED: IBUPROFEN 600 MG TABLET (FP) PO PRN (11:50)
[2022-07-07] MEDS ORDERED: BISMUTH SUBSALICYLATE 524 MG/30 ML PO PRN (11:50)
[2022-07-07] MEDS ORDERED: BENZOCAINE/MENTHOL (CHLORASEPTIC ) LOZENGE MM PRN (11:50)
[2022-07-07] MEDS ORDERED: IBUPROFEN 400 MG TABLET (FP) PO PRN (11:50)
[2022-07-07] MEDS ORDERED: NALOXONE HCL (KLOXXADO) 8 MG SPRAY NS PRN (11:50)
[2022-07-07] MEDS ORDERED: DICYCLOMINE HCL 10 MG CAPSULE PO PRN (11:50)
[2022-07-07] MEDS ORDERED: methaDONE HCL 10 MG TABLET (FOR DETOX USE ONLY) PO ONE (11:50)
[2022-07-07] MEDS ORDERED: levETIRAcetam 500 MG TABLET (FP) PO ONE (12:05)
[2022-07-07] MEDS ORDERED: methaDONE HCL 10 MG TABLET (FOR DETOX USE ONLY) ONE (12:12)
[2022-07-07] MEDS ORDERED: hydrOXYzine PAMOATE 25 MG CAPSULE (FP) PO ONE (12:19)
[2022-07-07] MEDS: hydrOXYzine PAMOATE 25 MG CAPSULE (FP) PO PRN ×2 (12:20→22:08)
[2022-07-07] MEDS: ASPIRIN 81 MG CHEWABLE TABLETS PO SCH (12:39)
[2022-07-07] MEDS: diazePAM 5 MG TABLET PO PRN (15:33)
[2022-07-07] MEDS: diazePAM 5 MG TABLET PO SCH ×2 (17:12→22:09)
[2022-07-07] MEDS: NICOTINE 10 MG CARTRIDGE (INHALER) IH PRN ×2 (17:16→21:15)
[2022-07-07] MEDS: MELATONIN 5 MG TABLETS PO SCH (22:08)
[2022-07-07] MEDS: THIAMINE HCL 100 MG TABLET (FP) PO SCH (22:08)
[2022-07-07] MEDS: levETIRAcetam 250 MG TABLET PO SCH (22:10)
[2022-07-08] MEDS: diazePAM 5 MG TABLET PO PRN ×3 (02:00→18:47)
[2022-07-08] MEDS: diazePAM 5 MG TABLET PO SCH ×4 (05:30→22:11)
[2022-07-08] MEDS: levETIRAcetam 250 MG TABLET PO SCH ×2 (10:11→22:10)
[2022-07-08] MEDS: hydrOXYzine PAMOATE 25 MG CAPSULE (FP) PO PRN ×2 (10:12→22:10)
[2022-07-08] MEDS: ASPIRIN 81 MG CHEWABLE TABLETS PO SCH (10:12)
[2022-07-08] MEDS: NICOTINE 10 MG CARTRIDGE (INHALER) IH PRN ×3 (10:15→21:25)
[2022-07-08] MEDS: NICOTINE 21 MG/24 HOURS TOPICAL PATCH TD SCH (10:16)
[2022-07-08] MEDS: PRENATAL VITAMINS W/ FOLIC ACID TABLET (FP) PO SCH (10:16)
[2022-07-08 11:38] LABS: HEMATOCRIT 33.1 % (32.4-45.2); HEMOGLOBIN 10.8 GM/dL (10.7-15.3); MCH 27.4 pg (25.7-33.7); MCHC 32.5 g/dl (32.0-36.0); MEAN CELL VOLUME 84.3 fl (80-96); MEAN PLT VOLUME 7.9 fl (7.5-11.1); PLATELET COUNT 193 10^3/uL (134-434); RBC 3.92 M/mm3 (3.60-5.2); RDW 13.5 % (11.6-15.6); WHITE BLOOD COUNT 6.2 K/mm3 (4.0-10.0)
[2022-07-08 11:48] LABS: CALCIUM 8.1 mg/dL (8.5-10.1)
[2022-07-08 11:49] LABS: ALBUMIN 3.2 g/dl (3.4-5.0); BLOOD UREA NITROGEN 24.6 mg/dL (7-18)
[2022-07-08 11:51] LABS: CREATININE 1.2 mg/dL (0.55-1.3)
[2022-07-08 11:53] LABS: BILIRUBIN,TOTAL 0.4 mg/dL (0.2-1); TOT PROT 6.2 g/dl (6.4-8.2)
[2022-07-08] MEDS: METHOCARBAMOL 500 MG TABLET PO PRN (16:36)
[2022-07-08] MEDS: THIAMINE HCL 100 MG TABLET (FP) PO SCH (22:10)
[2022-07-08] MEDS: MELATONIN 5 MG TABLETS PO SCH (22:10)
[2022-07-09] MEDS: diazePAM 5 MG TABLET PO PRN ×3 (00:54→17:38)
[2022-07-09] MEDS: METHOCARBAMOL 500 MG TABLET PO PRN (02:24)
[2022-07-09] MEDS: cloNIDine HCL 0.1 MG TABLET PO PRN ×4 (05:19→22:29)
[2022-07-09] MEDS: diazePAM 5 MG TABLET PO SCH ×3 (05:19→22:28)
[2022-07-09] MEDS: NICOTINE 10 MG CARTRIDGE (INHALER) IH PRN ×4 (05:29→22:37)
[2022-07-09] MEDS ORDERED: methaDONE HCL 10 MG TABLET (FOR DETOX USE ONLY) PO ONE (10:00)
[2022-07-09] MEDS: PRENATAL VITAMINS W/ FOLIC ACID TABLET (FP) PO SCH (10:02)
[2022-07-09] MEDS: levETIRAcetam 250 MG TABLET PO SCH ×2 (10:02→22:29)
[2022-07-09] MEDS: ASPIRIN 81 MG CHEWABLE TABLETS PO SCH (10:03)
[2022-07-09] MEDS: NICOTINE 21 MG/24 HOURS TOPICAL PATCH TD SCH (10:03)
[2022-07-09] MEDS: hydrOXYzine PAMOATE 25 MG CAPSULE (FP) PO PRN ×2 (17:38→22:28)
[2022-07-09] MEDS: MELATONIN 5 MG TABLETS PO SCH (22:27)
[2022-07-09] MEDS: THIAMINE HCL 100 MG TABLET (FP) PO SCH (22:28)
[2022-07-10] MEDS: METHOCARBAMOL 500 MG TABLET PO PRN ×2 (03:50→17:30)
[2022-07-10] MEDS: hydrOXYzine PAMOATE 25 MG CAPSULE (FP) PO PRN ×2 (05:46→17:30)
[2022-07-10] MEDS ORDERED: diazePAM 5 MG TABLET PO SCH (06:00)
[2022-07-10] MEDS: NICOTINE 10 MG CARTRIDGE (INHALER) IH PRN ×2 (06:01→19:42)
[2022-07-10] MEDS: ASPIRIN 81 MG CHEWABLE TABLETS PO SCH (11:27)
[2022-07-10] MEDS: PRENATAL VITAMINS W/ FOLIC ACID TABLET (FP) PO SCH (11:28)
[2022-07-10] MEDS: levETIRAcetam 250 MG TABLET PO SCH ×2 (11:28→23:04)
[2022-07-10] MEDS: NICOTINE 21 MG/24 HOURS TOPICAL PATCH TD SCH (11:28)
[2022-07-10] MEDS ORDERED: LORazepam 1 MG TABLET PO PRN (13:46)
[2022-07-10] MEDS ORDERED: LORazepam 0.5 MG TABLET PO PRN (14:00)
[2022-07-10] MEDS ORDERED: levETIRAcetam 250 MG TABLET PO ONE (14:24)
[2022-07-10] MEDS ORDERED: ASPIRIN 81 MG CHEWABLE TABLETS PO ONE (14:25)
[2022-07-10] MEDS: LORazepam 0.5 MG TABLET PO SCH ×2 (17:29→23:04)
[2022-07-10] MEDS: THIAMINE HCL 100 MG TABLET (FP) PO SCH (23:03)
[2022-07-10] MEDS: MELATONIN 5 MG TABLETS PO SCH (23:03)
[2022-07-11] MEDS: METHOCARBAMOL 500 MG TABLET PO PRN ×2 (03:38→17:25)
[2022-07-11] MEDS: hydrOXYzine PAMOATE 25 MG CAPSULE (FP) PO PRN (03:38)
[2022-07-11] MEDS ORDERED: LORazepam 0.5 MG TABLET PO ONE (05:00)
[2022-07-11] MEDS: NICOTINE 10 MG CARTRIDGE (INHALER) IH PRN ×3 (05:59→18:42)
[2022-07-11] MEDS ORDERED: diazePAM 5 MG TABLET PO ONE (06:00)
[2022-07-11] MEDS ORDERED: methaDONE HCL 10 MG TABLET (FOR DETOX USE ONLY) PO ONE (10:00)
[2022-07-11] MEDS: ASPIRIN 81 MG CHEWABLE TABLETS PO SCH (10:08)
[2022-07-11] MEDS: levETIRAcetam 250 MG TABLET PO SCH ×2 (10:08→23:09)
[2022-07-11] MEDS: PRENATAL VITAMINS W/ FOLIC ACID TABLET (FP) PO SCH (10:08)
[2022-07-11] MEDS: NICOTINE 21 MG/24 HOURS TOPICAL PATCH TD SCH (10:09)
[2022-07-11] MEDS: LORazepam 0.5 MG TABLET PO PRN ×2 (11:49→17:26)
[2022-07-11] MEDS: hydrOXYzine PAMOATE 50 MG CAPSULE (FP) PO PRN ×2 (13:09→17:25)
[2022-07-11 17:12] VITALS: TEMP 97.1
[2022-07-11] MEDS ORDERED: LORazepam 2 MG/ML SDV VIAL IM ONE (20:40)
[2022-07-11 21:59] VITALS: BP 156/97; PULSE 94; RESP 16
[2022-07-11] MEDS ORDERED: traZODone HCL 100 MG TABLET (FP) PO SCH (22:00)
[2022-07-11] MEDS: THIAMINE HCL 100 MG TABLET (FP) PO SCH (23:09)
[2022-07-13] MEDS ORDERED: LORazepam 0.5 MG TABLET PO SCH (05:00)
[2022-07-14] MEDS ORDERED: LORazepam 0.5 MG TABLET PO ONE (05:00)
== END 2022-07-12 06:32 | disposition short-term general hospital (02) | DRG 897 ==
LOC: YASAS 10:11 → Y6N 12:04
PROVIDERS: ADMIT Allergy & Immunology; ATTEND Surgery
PROC: HZ2ZZZZ Detoxification Services for Substance Abuse Treatment (ICD-10-PCS; principal; 2022-07-07)
DX: F11.23 Opioid dependence with withdrawal (principal); F19.282 Other psychoactive substance dependence with psychoactive substance-induced sleep disorder; F19.280 Other psychoactive substance dependence with psychoactive substance-induced anxiety disorder; F10.230 Alcohol dependence with withdrawal, uncomplicated; F17.210 Nicotine dependence, cigarettes, uncomplicated; F19.24 Other psychoactive substance dependence with psychoactive substance-induced mood disorder; F31.9 Bipolar disorder, unspecified; F41.9 Anxiety disorder, unspecified; G40.909 Epilepsy, unspecified, not intractable, without status epilepticus; G30.9 Alzheimer's disease, unspecified; F02.80 Dementia in other diseases classified elsewhere, unspecified severity, without behavioral disturbance, psychotic disturbance, mood disturbance, and anxiety; I10 Essential (primary) hypertension; Z86.73 Personal history of transient ischemic attack (TIA), and cerebral infarction without residual deficits; Z91.410 Personal history of adult physical and sexual abuse; Z86.19 Personal history of other infectious and parasitic diseases
CPT/HCPCS: 36415; 80053; 80177; 81025; 82962; 85027; 86780; C9803-CS; U0003; U0005

== ENCOUNTER 2022-07-11 21:22 | Inpatient (IN) | payer OTHER ==
[2022-07-11] MEDS ORDERED: levETIRAcetam 500 MG/5 ML INJECTION VIAL IVPB ONE ×2 (21:45→22:28)
[2022-07-11] MEDS ORDERED: diazePAM CARPU-JECT 10 MG/2 ML DISP.SYRIN ONE (22:04)
[2022-07-11] MEDS ORDERED: LORazepam 2 MG/ML SDV VIAL IVPUSH ONE ×2 (22:26→22:29)
[2022-07-11] MEDS ORDERED: LORazepam 2 MG/ML SDV VIAL IM ONE ×2 (22:27→22:28)
[2022-07-11] MEDS ORDERED: diazePAM CARPU-JECT 10 MG/2 ML DISP.SYRIN IVPUSH ONE (22:28)
[2022-07-11 22:44] LABS: BASO % 0.6 % (0-2.0); EOS % 4.5 % (0-4.5); HEMATOCRIT 33.6 % (32.4-45.2); HEMOGLOBIN 10.9 GM/dL (10.7-15.3); LYMPH % 34.7 % (8-40); MCH 27.1 pg (25.7-33.7); MCHC 32.4 g/dl (32.0-36.0); MEAN CELL VOLUME 83.5 fl (80-96); MEAN PLT VOLUME 7.7 fl (7.5-11.1); MONO % 10.2 % (3.8-10.2); PLATELET COUNT 198 10^3/uL (134-434); RBC 4.02 M/mm3 (3.60-5.2); RDW 13.8 % (11.6-15.6)
[2022-07-11 22:51] LABS: INR 0.91 (0.83-1.09); PROTHROMBIN TIME (PATIENT) 10.5 SEC (9.7-13.0)
[2022-07-11 22:54] LABS: ACTIVATED PTT 32.3 SECONDS (25.2-36.5)
[2022-07-11] MEDS ORDERED: ACETAMINOPHEN 1000 MG/100 ML BAG IVPB ONE (22:59)
[2022-07-11] MEDS ORDERED: ACETAMINOPHEN INJECTION 100 ML IVPB ONE (23:03)
[2022-07-11 23:12] LABS: CHLORIDE 106 mmol/L (98-107); SODIUM 143 mmol/L (136-145)
[2022-07-11 23:14] LABS: ALBUMIN 3.6 g/dl (3.4-5.0); ANION GAP 8 MMOL/L (8-16); CALCIUM 9.3 mg/dL (8.5-10.1); CO2 29 mmol/L (21-32)
[2022-07-11 23:15] LABS: BLOOD UREA NITROGEN 31.5 mg/dL (7-18); GLUCOSE,RANDOM 86 mg/dL (74-106)
[2022-07-11 23:17] LABS: CREATININE 1.5 mg/dL (0.55-1.3); SGOT/AST 27 U/L (15-37)
[2022-07-11 23:18] LABS: SGPT/ALT 18 U/L (13-61)
[2022-07-11 23:19] LABS: BILIRUBIN,TOTAL 0.3 mg/dL (0.2-1); TOT PROT 6.8 g/dl (6.4-8.2)
[2022-07-11 23:20] LABS: ALK PHOS 168 U/L (45-117)
[2022-07-11] MEDS ORDERED: ACETAMINOPHEN 500 MG TABLET (FP) PO PRN (23:51)
[2022-07-11] MEDS ORDERED: MELATONIN 5 MG TABLETS PO PRN (23:51)
[2022-07-12] MEDS ORDERED: diazePAM CARPU-JECT 10 MG/2 ML DISP.SYRIN ONE (00:36)
[2022-07-12] MEDS ORDERED: PROPOFOL 1,000,000 MCG/100 ML VIAL ONE (00:39)
[2022-07-12] MEDS ORDERED: RAPID SEQUENCE INTUBATION KIT NR ONE (00:44)
[2022-07-12] MEDS ORDERED: ETOMIDATE 40 MG/20 ML VIAL IVPUSH ONE (00:57)
[2022-07-12] MEDS ORDERED: ROCURONIUM BROMIDE 50 MG/5 ML VIAL IVPUSH ONE (00:57)
[2022-07-12] MEDS ORDERED: PROPOFOL 200 MG/20 ML VIAL IVPUSH ONE ×2 (01:04→01:16)
[2022-07-12] MEDS: PROPOFOL 1,000,000 MCG/100 ML VIAL IVPB SCH ×2 (01:05→10:00)
[2022-07-12] MEDS: FENTANYL NS IVPB 500 MCG/100 ML BAG IVPB SCH ×2 (01:10→18:04)
[2022-07-12 01:22] LABS: MAGNESIUM 2.2 mg/dL (1.8-2.4)
[2022-07-12 01:25] LABS: PHOSPHOROUS 3.7 mg/dL (2.5-4.9)
[2022-07-12 01:46] LABS: ARTERIAL BLD GAS O2 SATURATION 99.8 % (95-98); ARTERIAL BLOOD GAS BASE EXCESS 0.2 mmol/L (-2-2); ARTERIAL BLOOD GAS PO2 417.9 mmHg (80-100); ARTERIAL BLOOD GAS pH 7.326 (7.350-7.450)
[2022-07-12] MEDS ORDERED: MIDAZOLAM IN 0.9 % SOD.CHLORID 1 MG/1 ML PLAST..BAG ONE (02:27)
[2022-07-12] MEDS ORDERED: MIDAZOLAM 100 MG in SODIUM CHLORIDE 100 ML IVPB SCH (02:30)
[2022-07-12 02:50] LABS: URINE APPEARANCE CLEAR; URINE BILIRUBIN NEGATIVE (NEGATIVE); URINE COLOR YELLOW; URINE GLUCOSE (UA) NEGATIVE (NEGATIVE); URINE KETONE NEGATIVE (NEGATIVE); URINE LEUK ESTERASE NEGATIVE (NEGATIVE); URINE NITRITE NEGATIVE (NEGATIVE); URINE PROTEIN TRACE (NEGATIVE); URINE UROBILINOGEN 0.2 mg/dL (0.2-1.0)
[2022-07-12 02:54] LABS: COCAINE, UR NEGATIVE (NEGATIVE); OPIATES, URI NEGATIVE (NEGATIVE); PHENCYCLIDINE,URINE NEGATIVE (NEGATIVE)
[2022-07-12 02:55] LABS: METHADONE, UR POSITIVE (NEGATIVE); URINE AMPHETAMINES NEGATIVE (NEGATIVE); URINE BARBITURATES NEGATIVE (NEGATIVE); URINE BENZODIAZEPINES POSITIVE (NEGATIVE)
[2022-07-12] MEDS: MIDAZOLAM IN 0.9 % SOD.CHLORID 100 MG/100 ML PLAST..BAG IVPB SCH ×2 (03:22→18:04)
[2022-07-12] MEDS ORDERED: ACETAMINOPHEN 500 MG TABLET (FP) PO PRN (05:00)
[2022-07-12 07:06] LABS: ARTERIAL BLD GAS O2 SATURATION 99.9 % (95-98); ARTERIAL BLOOD GAS BASE EXCESS 1.9 mmol/L (-2-2); ARTERIAL BLOOD GAS PO2 479.6 mmHg (80-100); ARTERIAL BLOOD GAS pH 7.356 (7.350-7.450)
[2022-07-12] MEDS ORDERED: PNEUMOC 20-VAL CONJ-DIP CRM/PF 0.5 ML SYRINGE IM ONE (07:09)
[2022-07-12 07:13] LABS: VENT MODE V/A/C; VENT RATE 14
[2022-07-12] MEDS: HEPARIN NA (PORCINE) 5,000 UNITS/ML 1ML VIAL SQ SCH ×3 (07:31→21:27)
[2022-07-12 07:33] LABS: BASO % 0.6 % (0-2.0); EOS % 3.1 % (0-4.5); HEMATOCRIT 35.8 % (32.4-45.2); HEMOGLOBIN 11.5 GM/dL (10.7-15.3); LYMPH % 24.6 % (8-40); MCH 27.2 pg (25.7-33.7); MCHC 32.2 g/dl (32.0-36.0); MEAN CELL VOLUME 84.4 fl (80-96); MEAN PLT VOLUME 7.7 fl (7.5-11.1); MONO % 10.9 % (3.8-10.2); NEUT % 60.8 % (42.8-82.8); PLATELET COUNT 175 10^3/uL (134-434); RBC 4.24 M/mm3 (3.60-5.2); RDW 13.7 % (11.6-15.6); WHITE BLOOD COUNT 8.3 K/mm3 (4.0-10.0)
[2022-07-12 07:51] LABS: ALBUMIN 3.4 g/dl (3.4-5.0); CALCIUM 8.7 mg/dL (8.5-10.1); MAGNESIUM 2.3 mg/dL (1.8-2.4)
[2022-07-12 07:52] LABS: BLOOD UREA NITROGEN 29.5 mg/dL (7-18)
[2022-07-12 07:54] LABS: CREATININE 1.4 mg/dL (0.55-1.3); PHOSPHOROUS 5.1 mg/dL (2.5-4.9)
[2022-07-12 07:56] LABS: BILIRUBIN,TOTAL 0.4 mg/dL (0.2-1); TOT PROT 6.6 g/dl (6.4-8.2)
[2022-07-12] MEDS ORDERED: amLODIPine BESYLATE 2.5 MG TABLET (FP) PO SCH (10:00)
[2022-07-12] MEDS: levETIRAcetam 500 MG/5 ML INJECTION VIAL IVPB SCH ×2 (10:30→21:26)
[2022-07-12] MEDS: DEXMEDETOMIDINE PREMIX 400 MCG/100 ML BAG IVPB SCH (10:30)
[2022-07-12] MEDS: FAMOTIDINE 20 MG/50 ML IVPB 20 MG/50 ML MG IVPB SCH ×2 (10:30→21:28)
[2022-07-12] MEDS: MUPIROCIN 2% TOPICAL OINTMENT FOR DECOLONIZATION NS SCH ×2 (10:31→21:28)
[2022-07-12] MEDS: SODIUM CHLORIDE 1,000 ML IV SCH (11:04)
[2022-07-12] MEDS: CHLORHEXIDINE GLUCONATE 4% CLEANSER FOR DECOLONIZATION TP SCH (21:28)
[2022-07-13] MEDS ORDERED: SODIUM CHLORIDE 500 ML IV STA ×2 (03:17→06:39)
[2022-07-13] MEDS: PROPOFOL 1,000,000 MCG/100 ML VIAL IVPB SCH ×2 (03:38→19:30)
[2022-07-13] MEDS: FENTANYL NS IVPB 500 MCG/100 ML BAG IVPB SCH (03:39)
[2022-07-13] MEDS: HEPARIN NA (PORCINE) 5,000 UNITS/ML 1ML VIAL SQ SCH ×3 (06:05→21:09)
[2022-07-13] MEDS: MUPIROCIN 2% TOPICAL OINTMENT FOR DECOLONIZATION NS SCH ×2 (10:11→21:09)
[2022-07-13] MEDS: FAMOTIDINE 20 MG/50 ML IVPB 20 MG/50 ML MG IVPB SCH ×2 (10:11→21:00)
[2022-07-13] MEDS: levETIRAcetam 500 MG/5 ML INJECTION VIAL IVPB SCH ×2 (10:11→21:00)
[2022-07-13] MEDS: DEXMEDETOMIDINE PREMIX 400 MCG/100 ML BAG IVPB SCH ×2 (10:11→22:51)
[2022-07-13] MEDS: SODIUM CHLORIDE 1,000 ML IV SCH ×2 (10:11→16:31)
[2022-07-13] MEDS ORDERED: LORazepam 2 MG/ML SDV VIAL IVPUSH ONE (13:54)
[2022-07-13 15:32] VITALS: BMI 28.5
[2022-07-13] MEDS: CHLORHEXIDINE GLUCONATE 4% CLEANSER FOR DECOLONIZATION TP SCH (21:00)
[2022-07-14] MEDS ORDERED: ACETAMINOPHEN 1000 MG/100 ML BAG IVPB ONE (00:59)
[2022-07-14] MEDS: PROPOFOL 1,000,000 MCG/100 ML VIAL IVPB SCH (01:00)
[2022-07-14] MEDS: FENTANYL NS IVPB 500 MCG/100 ML BAG IVPB SCH (01:00)
[2022-07-14] MEDS ORDERED: NITROGLYCERIN 25MG/D5W 250ML 25 MG/250 ML ML IVPB ONE (01:16)
[2022-07-14] MEDS: HEPARIN NA (PORCINE) 5,000 UNITS/ML 1ML VIAL SQ SCH (05:32)
[2022-07-14 07:44] LABS: BASO % 0.2 % (0-2.0); EOS % 0.4 % (0-4.5); HEMOGLOBIN 9.4 GM/dL (10.7-15.3); LYMPH % 12.4 % (8-40); MCH 26.9 pg (25.7-33.7); MCHC 32.5 g/dl (32.0-36.0); MEAN CELL VOLUME 82.9 fl (80-96); MEAN PLT VOLUME 8.4 fl (7.5-11.1); MONO % 7.5 % (3.8-10.2); NEUT % 79.5 % (42.8-82.8); PLATELET COUNT 154 10^3/uL (134-434); RBC 3.49 M/mm3 (3.60-5.2); RDW 13.1 % (11.6-15.6); WHITE BLOOD COUNT 9.4 K/mm3 (4.0-10.0)
[2022-07-14 08:06] LABS: BLOOD UREA NITROGEN 23.8 mg/dL (7-18); CALCIUM 8.4 mg/dL (8.5-10.1)
[2022-07-14 08:09] LABS: CREATININE 1.2 mg/dL (0.55-1.3)
[2022-07-14 08:11] LABS: BILIRUBIN,TOTAL 0.9 mg/dL (0.2-1); TOT PROT 5.9 g/dl (6.4-8.2)
[2022-07-14] MEDS: levETIRAcetam 500 MG/5 ML INJECTION VIAL IVPB SCH (09:22)
[2022-07-14] MEDS: FAMOTIDINE 20 MG/50 ML IVPB 20 MG/50 ML MG IVPB SCH (09:23)
[2022-07-14] MEDS: MUPIROCIN 2% TOPICAL OINTMENT FOR DECOLONIZATION NS SCH (10:00)
[2022-07-14 14:07] VITALS: BP 141/78; PULSE 88; RESP 20; TEMP 99.2
[2022-07-14] MEDS ORDERED: clonazePAM 0.5 MG TABLET PO STA (14:37)
[2022-07-14] MEDS ORDERED: PHENobarbital 20 MG/5 ML UNIT-DOSE CUP PO STA (14:42)
[2022-07-14] MEDS ORDERED: levETIRAcetam 500 MG TABLET (FP) PO SCH (22:00)
== END 2022-07-14 15:15 | disposition left against medical advice (07) | DRG 100 ==
LOC: JER 21:22 → JERBED 23:22 → JICU 07-12 06:39
PROVIDERS: ADMIT Internal Medicine Pulmonary Disease; ATTEND Internal Medicine Pulmonary Disease
PROC: 5A1945Z Respiratory Ventilation, 24-96 Consecutive Hours (ICD-10-PCS; principal; 2022-07-12)
PROC: 0BH17EZ Insertion of Endotracheal Airway into Trachea, Via Natural or Artificial Opening (ICD-10-PCS; 2022-07-12)
PROC: 02HV33Z Insertion of Infusion Device into Superior Vena Cava, Percutaneous Approach (ICD-10-PCS; 2022-07-12)
PROC: B548ZZA Ultrasonography of Superior Vena Cava, Guidance (ICD-10-PCS; 2022-07-12)
DX: G40.901 Epilepsy, unspecified, not intractable, with status epilepticus (principal); J96.90 Respiratory failure, unspecified, unspecified whether with hypoxia or hypercapnia; F10.230 Alcohol dependence with withdrawal, uncomplicated; F19.20 Other psychoactive substance dependence, uncomplicated; F11.23 Opioid dependence with withdrawal; Z86.73 Personal history of transient ischemic attack (TIA), and cerebral infarction without residual deficits; I12.9 Hypertensive chronic kidney disease with stage 1 through stage 4 chronic kidney disease, or unspecified chronic kidney disease; N18.9 Chronic kidney disease, unspecified; F41.8 Other specified anxiety disorders; I95.89 Other hypotension; G25.2 Other specified forms of tremor; Z53.29 Procedure and treatment not carried out because of patient's decision for other reasons
CPT/HCPCS: 0241U-QW; 36415; 36600; 70450-TC; 71045-TC-FY; 72125-TC; 80053; 80307; 81003; 82436; 82550; 82553; 82570; 82803; 82962; 83605; 83735; 84100; 84133; 84146; 84156; 84300; 84443; 84484; 84703; 85025; 85610; 85730; 87040; 87086; 93005; 93010; 94002; 99291; J1644

== ENCOUNTER 2023-02-07 07:09 | Inpatient (IN) | payer OTHER ==
[2023-02-07 08:58] VITALS: BMI 28.9
[2023-02-07] MEDS ORDERED: ACETAMINOPHEN 325 MG TABLET (FP) PO PRN (09:15)
[2023-02-07] MEDS ORDERED: BISMUTH SUBSALICYLATE 262 MG/15 ML BTL PO PRN (09:15)
[2023-02-07] MEDS ORDERED: methaDONE HCL 10 MG TABLET (FOR DETOX USE ONLY) PO ONE (09:15)
[2023-02-07] MEDS ORDERED: IBUPROFEN 400 MG TABLET (FP) PO PRN (09:15)
[2023-02-07] MEDS ORDERED: POLYETHYLENE GLYCOL (HEALTHYLAX) 3350 17 GM PACKET PO PRN (09:15)
[2023-02-07] MEDS ORDERED: BENZONATATE 200 MG CAPSULE PO PRN (09:15)
[2023-02-07] MEDS ORDERED: guaiFENesin 600 MG TABLET.ER (FP) PO PRN (09:15)
[2023-02-07] MEDS ORDERED: NALOXONE HCL 0.4 MG/ML VIAL IM PRN (09:15)
[2023-02-07] MEDS ORDERED: LOPERAMIDE HCL 2 MG CAPSULE PO PRN (09:15)
[2023-02-07] MEDS ORDERED: METHOCARBAMOL 500 MG TABLET PO PRN (09:15)
[2023-02-07] MEDS ORDERED: MAG HYDROX/AL HYDROX/SIMETH 30 ML UNIT-DOSE CUP PO PRN (09:15)
[2023-02-07] MEDS ORDERED: cloNIDine HCL 0.1 MG TABLET PO PRN (09:15)
[2023-02-07] MEDS ORDERED: BENZOCAINE/MENTHOL (CHLORASEPTIC ) LOZENGE MM PRN (09:15)
[2023-02-07] MEDS ORDERED: ONDANSETRON *ODT* 4 MG TABLET SL PRN (09:15)
[2023-02-07] MEDS ORDERED: MAGNESIUM HYDROX 2400MG/30ML ORAL SUSPENSION 30 ML CUP PO PRN (09:15)
[2023-02-07] MEDS ORDERED: hydrOXYzine PAMOATE 25 MG CAPSULE (FP) PO PRN (09:15)
[2023-02-07] MEDS ORDERED: DICYCLOMINE HCL 10 MG CAPSULE PO PRN (09:15)
[2023-02-07] MEDS ORDERED: NALOXONE HCL (KLOXXADO) 8 MG SPRAY NS PRN (09:15)
[2023-02-07] MEDS ORDERED: levETIRAcetam 500 MG TABLET (FP) PO ONE (09:23)
[2023-02-07] MEDS ORDERED: levETIRAcetam 500 MG TABLET (FP) PO SCH ×2 (10:00→22:00)
[2023-02-07] MEDS ORDERED: NICOTINE 14 MG/24 HOURS TOPICAL PATCH TD ONE (10:31)
[2023-02-07] MEDS ORDERED: methaDONE HCL 10 MG TABLET (FOR DETOX USE ONLY) ONE (10:31)
[2023-02-07] MEDS ORDERED: PRENATAL VITAMINS W/ FOLIC ACID TABLET (FP) PO ONE (10:32)
[2023-02-07] MEDS: amLODIPine BESYLATE 2.5 MG TABLET (FP) PO SCH (10:41)
[2023-02-07] MEDS: PRENATAL VITAMINS W/ FOLIC ACID TABLET (FP) PO SCH (10:41)
[2023-02-07] MEDS: NICOTINE 14 MG/24 HOURS TOPICAL PATCH TD SCH (10:41)
[2023-02-07 14:59] LABS: POTASSIUM 4.5 mmol/L (3.5-5.1)
[2023-02-07 15:00] LABS: HEMATOCRIT 36.9 % (32.4-45.2); HEMOGLOBIN 12.2 GM/dL (10.7-15.3); MCH 27.2 pg (25.7-33.7); MCHC 33.1 g/dl (32.0-36.0); MEAN CELL VOLUME 82.2 fl (80-96); MEAN PLT VOLUME 8.4 fl (7.5-11.1); PLATELET COUNT 260 10^3/uL (134-434); RBC 4.49 M/mm3 (3.60-5.2); RDW 13.6 % (11.6-15.6); WHITE BLOOD COUNT 7.4 K/mm3 (4.0-10.0)
[2023-02-07 15:01] LABS: CALCIUM 9.1 mg/dL (8.5-10.1)
[2023-02-07 15:02] LABS: ALBUMIN 3.8 g/dl (3.4-5.0)
[2023-02-07 15:04] LABS: CREATININE 1.3 mg/dL (0.55-1.3)
[2023-02-07 15:06] LABS: BILIRUBIN,TOTAL 0.3 mg/dL (0.2-1); TOT PROT 7.3 g/dl (6.4-8.2)
[2023-02-07] MEDS: diazePAM 5 MG TABLET PO PRN (17:29)
[2023-02-07] MEDS ORDERED: MELATONIN 5 MG TABLETS PO SCH (22:00)
[2023-02-07] MEDS: THIAMINE HCL 100 MG TABLET (FP) PO SCH (22:23)
[2023-02-07] MEDS: levETIRAcetam 250 MG TABLET PO SCH (22:23)
[2023-02-07] MEDS: traZODone HCL 100 MG TABLET (FP) PO SCH (22:23)
[2023-02-08] MEDS: diazePAM 5 MG TABLET PO PRN ×3 (01:32→22:33)
[2023-02-08] MEDS: levETIRAcetam 250 MG TABLET PO SCH ×2 (09:49→22:32)
[2023-02-08] MEDS: amLODIPine BESYLATE 2.5 MG TABLET (FP) PO SCH (09:49)
[2023-02-08] MEDS: NICOTINE 14 MG/24 HOURS TOPICAL PATCH TD SCH (09:49)
[2023-02-08] MEDS: PRENATAL VITAMINS W/ FOLIC ACID TABLET (FP) PO SCH (09:49)
[2023-02-08] MEDS: IBUPROFEN 600 MG TABLET (FP) PO PRN (17:43)
[2023-02-08] MEDS: traZODone HCL 100 MG TABLET (FP) PO SCH (22:32)
[2023-02-08] MEDS: THIAMINE HCL 100 MG TABLET (FP) PO SCH (22:32)
[2023-02-09] MEDS: PRENATAL VITAMINS W/ FOLIC ACID TABLET (FP) PO SCH (09:34)
[2023-02-09] MEDS: levETIRAcetam 250 MG TABLET PO SCH ×2 (09:34→22:08)
[2023-02-09] MEDS: amLODIPine BESYLATE 2.5 MG TABLET (FP) PO SCH (09:35)
[2023-02-09] MEDS: NICOTINE 14 MG/24 HOURS TOPICAL PATCH TD SCH (09:35)
[2023-02-09] MEDS: diazePAM 5 MG TABLET PO PRN ×2 (09:37→22:10)
[2023-02-09] MEDS ORDERED: methaDONE HCL 10 MG TABLET (FOR DETOX USE ONLY) PO ONE (10:00)
[2023-02-09] MEDS: IBUPROFEN 600 MG TABLET (FP) PO PRN (17:40)
[2023-02-09] MEDS: NICOTINE 10 MG CARTRIDGE (INHALER) IH PRN (20:36)
[2023-02-09] MEDS: THIAMINE HCL 100 MG TABLET (FP) PO SCH (22:09)
[2023-02-09] MEDS: traZODone HCL 100 MG TABLET (FP) PO SCH (22:10)
[2023-02-10] MEDS: NICOTINE 10 MG CARTRIDGE (INHALER) IH PRN ×2 (08:18→22:20)
[2023-02-10] MEDS: PRENATAL VITAMINS W/ FOLIC ACID TABLET (FP) PO SCH (09:36)
[2023-02-10] MEDS: amLODIPine BESYLATE 2.5 MG TABLET (FP) PO SCH (09:37)
[2023-02-10] MEDS: levETIRAcetam 250 MG TABLET PO SCH ×2 (09:37→22:17)
[2023-02-10] MEDS: diazePAM 5 MG TABLET PO PRN ×2 (09:37→17:30)
[2023-02-10] MEDS: NICOTINE 14 MG/24 HOURS TOPICAL PATCH TD SCH (09:53)
[2023-02-10] MEDS: IBUPROFEN 600 MG TABLET (FP) PO PRN (17:29)
[2023-02-10] MEDS ORDERED: traZODone HCL 150 MG TABLET PO SCH (22:00)
[2023-02-10] MEDS: THIAMINE HCL 100 MG TABLET (FP) PO SCH (22:17)
[2023-02-10] MEDS: traZODone HCL 100 MG, traZODone HCL 50 MG PO SCH (22:18)
[2023-02-10] MEDS: hydrOXYzine PAMOATE 25 MG CAPSULE (FP) PO PRN (22:20)
[2023-02-11] MEDS: diazePAM 5 MG TABLET PO PRN ×3 (03:41→22:15)
[2023-02-11] MEDS: levETIRAcetam 250 MG TABLET PO SCH ×2 (09:40→22:33)
[2023-02-11] MEDS: PRENATAL VITAMINS W/ FOLIC ACID TABLET (FP) PO SCH (09:40)
[2023-02-11] MEDS: amLODIPine BESYLATE 2.5 MG TABLET (FP) PO SCH (09:40)
[2023-02-11] MEDS: NICOTINE 14 MG/24 HOURS TOPICAL PATCH TD SCH (09:40)
[2023-02-11] MEDS ORDERED: methaDONE HCL 10 MG TABLET (FOR DETOX USE ONLY) PO ONE (10:00)
[2023-02-11] MEDS: hydrOXYzine PAMOATE 25 MG CAPSULE (FP) PO PRN (11:56)
[2023-02-11 21:21] VITALS: RESP 16
[2023-02-11] MEDS: traZODone HCL 100 MG, traZODone HCL 50 MG PO SCH (22:13)
[2023-02-11] MEDS: THIAMINE HCL 100 MG TABLET (FP) PO SCH (22:14)
[2023-02-11] MEDS: IBUPROFEN 600 MG TABLET (FP) PO PRN (22:16)
[2023-02-12] MEDS: IBUPROFEN 600 MG TABLET (FP) PO PRN (05:35)
[2023-02-12] MEDS: diazePAM 5 MG TABLET PO PRN (05:37)
[2023-02-12 06:11] VITALS: PULSE 80
[2023-02-12 09:39] VITALS: BP 145/86; TEMP 97.5
[2023-02-12] MEDS: PRENATAL VITAMINS W/ FOLIC ACID TABLET (FP) PO SCH (09:51)
[2023-02-12] MEDS: amLODIPine BESYLATE 2.5 MG TABLET (FP) PO SCH (09:52)
[2023-02-12] MEDS: levETIRAcetam 250 MG TABLET PO SCH (09:52)
[2023-02-12] MEDS: NICOTINE 14 MG/24 HOURS TOPICAL PATCH TD SCH (09:52)
== END 2023-02-12 10:42 | disposition home or self-care (01) | DRG 897 ==
LOC: YASAS 07:09 → Y3N 09:19
PROVIDERS: ADMIT Allergy & Immunology; ATTEND Surgery
PROC: HZ2ZZZZ Detoxification Services for Substance Abuse Treatment (ICD-10-PCS; principal; 2023-02-07)
DX: F11.23 Opioid dependence with withdrawal (principal); F15.20 Other stimulant dependence, uncomplicated; F19.282 Other psychoactive substance dependence with psychoactive substance-induced sleep disorder; F12.20 Cannabis dependence, uncomplicated; F17.210 Nicotine dependence, cigarettes, uncomplicated; F31.9 Bipolar disorder, unspecified; G40.909 Epilepsy, unspecified, not intractable, without status epilepticus; I10 Essential (primary) hypertension; Z86.19 Personal history of other infectious and parasitic diseases; Z86.73 Personal history of transient ischemic attack (TIA), and cerebral infarction without residual deficits
CPT/HCPCS: 36415; 80053; 80177; 85027; 86780; 87635; 87811

== ENCOUNTER 2023-05-22 08:38 | Inpatient (IN) | payer OTHER ==
[2023-05-22 09:35] VITALS: BMI 28.3
[2023-05-22] MEDS ORDERED: LOPERAMIDE HCL 2 MG CAPSULE PO PRN (09:56)
[2023-05-22] MEDS ORDERED: IBUPROFEN 600 MG TABLET (FP) PO PRN (09:56)
[2023-05-22] MEDS ORDERED: BISMUTH SUBSALICYLATE 262 MG/15 ML BTL PO PRN (09:56)
[2023-05-22] MEDS ORDERED: guaiFENesin 600 MG TABLET.ER (FP) PO PRN (09:56)
[2023-05-22] MEDS ORDERED: NALOXONE HCL 0.4 MG/ML VIAL IM PRN (09:56)
[2023-05-22] MEDS ORDERED: BENZOCAINE/MENTHOL (CHLORASEPTIC ) LOZENGE MM PRN (09:56)
[2023-05-22] MEDS ORDERED: POLYETHYLENE GLYCOL (HEALTHYLAX) 3350 17 GM PACKET PO PRN (09:56)
[2023-05-22] MEDS ORDERED: NALOXONE HCL (KLOXXADO) 8 MG SPRAY NS PRN (09:56)
[2023-05-22] MEDS ORDERED: ONDANSETRON *ODT* 4 MG TABLET SL PRN (09:56)
[2023-05-22] MEDS ORDERED: P-EPHED 60MG/TRIPROLIDI 2.5MG TABLET PO PRN (09:56)
[2023-05-22] MEDS ORDERED: ACETAMINOPHEN 325 MG TABLET (FP) PO PRN (09:56)
[2023-05-22] MEDS ORDERED: IBUPROFEN 400 MG TABLET (FP) PO PRN (09:56)
[2023-05-22] MEDS ORDERED: MAGNESIUM HYDROX 2400MG/30ML ORAL SUSPENSION 30 ML CUP PO PRN (09:56)
[2023-05-22] MEDS ORDERED: NICOTINE POLACRILEX 2 MG GUM BUC PRN (09:56)
[2023-05-22] MEDS ORDERED: MAG HYDROX/AL HYDROX/SIMETH 30 ML UNIT-DOSE CUP PO PRN (09:56)
[2023-05-22] MEDS ORDERED: BENZONATATE 200 MG CAPSULE PO PRN (09:56)
[2023-05-22] MEDS ORDERED: methaDONE HCL 10 MG TABLET (FOR DETOX USE ONLY) PO ONE (10:05)
[2023-05-22] MEDS ORDERED: cloNIDine HCL 0.1 MG TABLET PO PRN (10:05)
[2023-05-22] MEDS ORDERED: methaDONE HCL 10 MG TABLET (FOR DETOX USE ONLY) ONE (10:22)
[2023-05-22] MEDS ORDERED: PRENATAL VITAMINS W/ FOLIC ACID TABLET (FP) PO ONE (10:23)
[2023-05-22] MEDS ORDERED: levETIRAcetam 500 MG TABLET (FP) PO ONE (10:23)
[2023-05-22] MEDS: levETIRAcetam 250 MG TABLET PO SCH ×2 (10:27→21:46)
[2023-05-22] MEDS: PRENATAL VITAMINS W/ FOLIC ACID TABLET (FP) PO SCH (10:27)
[2023-05-22] MEDS ORDERED: NICOTINE POLACRILEX 4 MG GUM BUC PRN (12:10)
[2023-05-22] MEDS: NICOTINE 21 MG/24 HOURS TOPICAL PATCH TD PRN (12:12)
[2023-05-22] MEDS ORDERED: FLU VACCINE (FLULAVAL) PF 60 MCG/0.5 ML SYRINGE 2023-2024 IM ONE (12:15)
[2023-05-22] MEDS: diazePAM 5 MG TABLET PO PRN ×2 (14:00→21:45)
[2023-05-22] MEDS: traZODone HCL 50 MG TABLET (FP) PO SCH (21:46)
[2023-05-22] MEDS: TOPIRAMATE 100 MG TABLET PO SCH (21:46)
[2023-05-22] MEDS: THIAMINE HCL 100 MG TABLET (FP) PO SCH (21:47)
[2023-05-22] MEDS ORDERED: MELATONIN 5 MG TABLETS PO SCH (22:00)
[2023-05-23] MEDS: diazePAM 5 MG TABLET PO PRN ×5 (04:01→23:38)
[2023-05-23] MEDS: levETIRAcetam 250 MG TABLET PO SCH ×2 (09:07→22:18)
[2023-05-23] MEDS: PRENATAL VITAMINS W/ FOLIC ACID TABLET (FP) PO SCH (09:07)
[2023-05-23 10:54] LABS: HEMATOCRIT 31.9 % (32.4-45.2); HEMOGLOBIN 10.8 GM/dL (10.7-15.3); MCH 27.5 pg (25.7-33.7); MEAN CELL VOLUME 80.9 fl (80-96); MEAN PLT VOLUME 7.9 fl (7.5-11.1); PLATELET COUNT 204 10^3/uL (134-434); RBC 3.95 M/mm3 (3.60-5.2); RDW 14.2 % (11.6-15.6); WHITE BLOOD COUNT 5.6 K/mm3 (4.0-10.0)
[2023-05-23 10:57] LABS: POTASSIUM 4.2 mmol/L (3.5-5.1)
[2023-05-23 10:59] LABS: ALBUMIN 3.1 g/dl (3.4-5.0); BLOOD UREA NITROGEN 31.4 mg/dL (7-18)
[2023-05-23 11:02] LABS: CREATININE 1.2 mg/dL (0.55-1.3)
[2023-05-23 11:04] LABS: BILIRUBIN,TOTAL 0.1 mg/dL (0.2-1); TOT PROT 6.2 g/dl (6.4-8.2)
[2023-05-23] MEDS: traZODone HCL 50 MG TABLET (FP) PO SCH (22:18)
[2023-05-23] MEDS: THIAMINE HCL 100 MG TABLET (FP) PO SCH (22:18)
[2023-05-23] MEDS: TOPIRAMATE 100 MG TABLET PO SCH (22:19)
[2023-05-24] MEDS: diazePAM 5 MG TABLET PO PRN ×5 (05:31→22:22)
[2023-05-24] MEDS: levETIRAcetam 250 MG TABLET PO SCH ×2 (09:05→22:19)
[2023-05-24] MEDS: PRENATAL VITAMINS W/ FOLIC ACID TABLET (FP) PO SCH (09:05)
[2023-05-24] MEDS ORDERED: methaDONE HCL 10 MG TABLET (FOR DETOX USE ONLY) PO ONE (10:00)
[2023-05-24] MEDS: NICOTINE 21 MG/24 HOURS TOPICAL PATCH TD PRN (15:34)
[2023-05-24] MEDS: traZODone HCL 50 MG TABLET (FP) PO SCH (22:19)
[2023-05-24] MEDS: THIAMINE HCL 100 MG TABLET (FP) PO SCH (22:19)
[2023-05-24] MEDS: TOPIRAMATE 100 MG TABLET PO SCH (22:21)
[2023-05-25] MEDS: diazePAM 5 MG TABLET PO PRN ×5 (05:25→22:39)
[2023-05-25] MEDS: levETIRAcetam 250 MG TABLET PO SCH ×2 (09:14→22:14)
[2023-05-25] MEDS: amLODIPine BESYLATE 2.5 MG TABLET (FP) PO SCH (09:15)
[2023-05-25] MEDS: PRENATAL VITAMINS W/ FOLIC ACID TABLET (FP) PO SCH (09:15)
[2023-05-25] MEDS: NICOTINE 21 MG/24 HOURS TOPICAL PATCH TD PRN (09:19)
[2023-05-25] MEDS: traZODone HCL 50 MG TABLET (FP) PO SCH (22:13)
[2023-05-25] MEDS: THIAMINE HCL 100 MG TABLET (FP) PO SCH (22:13)
[2023-05-25] MEDS: TOPIRAMATE 100 MG TABLET PO SCH (22:19)
[2023-05-26] MEDS: diazePAM 5 MG TABLET PO PRN (03:06)
[2023-05-26] MEDS: amLODIPine BESYLATE 2.5 MG TABLET (FP) PO SCH (09:30)
[2023-05-26] MEDS: PRENATAL VITAMINS W/ FOLIC ACID TABLET (FP) PO SCH (09:30)
[2023-05-26] MEDS: levETIRAcetam 250 MG TABLET PO SCH ×2 (09:30→22:09)
[2023-05-26] MEDS ORDERED: methaDONE HCL 10 MG TABLET (FOR DETOX USE ONLY) PO ONE (10:00)
[2023-05-26] MEDS: traZODone HCL 50 MG TABLET (FP) PO SCH (22:09)
[2023-05-26] MEDS: THIAMINE HCL 100 MG TABLET (FP) PO SCH (22:09)
[2023-05-26] MEDS: TOPIRAMATE 100 MG TABLET PO SCH (23:08)
[2023-05-27 06:35] VITALS: RESP 18
[2023-05-27] MEDS: PRENATAL VITAMINS W/ FOLIC ACID TABLET (FP) PO SCH (09:09)
[2023-05-27] MEDS: levETIRAcetam 250 MG TABLET PO SCH (09:10)
[2023-05-27 09:48] VITALS: BP 144/88; PULSE 87; TEMP 98.2
[2023-05-27] MEDS ORDERED: amLODIPine BESYLATE 5 MG TABLET (FP) PO SCH (10:00)
== END 2023-05-27 10:54 | disposition home or self-care (01) | DRG 897 ==
LOC: YASAS 08:38 → Y6N 10:22
PROVIDERS: ADMIT Allergy & Immunology; ATTEND Surgery
PROC: HZ2ZZZZ Detoxification Services for Substance Abuse Treatment (ICD-10-PCS; principal; 2023-05-22)
DX: F11.23 Opioid dependence with withdrawal (principal); F19.280 Other psychoactive substance dependence with psychoactive substance-induced anxiety disorder; F19.282 Other psychoactive substance dependence with psychoactive substance-induced sleep disorder; F10.230 Alcohol dependence with withdrawal, uncomplicated; F12.20 Cannabis dependence, uncomplicated; F17.210 Nicotine dependence, cigarettes, uncomplicated; F39 Unspecified mood [affective] disorder; G40.909 Epilepsy, unspecified, not intractable, without status epilepticus; I12.9 Hypertensive chronic kidney disease with stage 1 through stage 4 chronic kidney disease, or unspecified chronic kidney disease; N18.9 Chronic kidney disease, unspecified; B18.2 Chronic viral hepatitis C; Z86.73 Personal history of transient ischemic attack (TIA), and cerebral infarction without residual deficits
CPT/HCPCS: 36415; 80053; 85027; 86780; 87635; 87811; 90686; G0008

== ENCOUNTER 2023-06-27 10:34 | Inpatient (IN) | payer OTHER ==
[2023-06-27 10:59] VITALS: BMI 29.7
[2023-06-27] MEDS ORDERED: cloNIDine HCL 0.1 MG TABLET PO PRN (11:23)
[2023-06-27] MEDS ORDERED: MAG HYDROX/AL HYDROX/SIMETH 30 ML UNIT-DOSE CUP PO PRN (11:28)
[2023-06-27] MEDS ORDERED: BISMUTH SUBSALICYLATE 524 MG/30 ML PO PRN (11:28)
[2023-06-27] MEDS ORDERED: LOPERAMIDE HCL 2 MG CAPSULE PO PRN (11:28)
[2023-06-27] MEDS ORDERED: BENZONATATE 200 MG CAPSULE PO PRN (11:28)
[2023-06-27] MEDS ORDERED: BENZOCAINE/MENTHOL (CHLORASEPTIC ) LOZENGE MM PRN (11:28)
[2023-06-27] MEDS ORDERED: IBUPROFEN 400 MG TABLET (FP) PO PRN (11:28)
[2023-06-27] MEDS ORDERED: guaiFENesin 600 MG TABLET.ER (FP) PO PRN (11:28)
[2023-06-27] MEDS ORDERED: NICOTINE POLACRILEX 2 MG GUM BUC PRN (11:28)
[2023-06-27] MEDS ORDERED: IBUPROFEN 600 MG TABLET (FP) PO PRN (11:28)
[2023-06-27] MEDS ORDERED: ONDANSETRON *ODT* 4 MG TABLET SL PRN (11:28)
[2023-06-27] MEDS ORDERED: NALOXONE HCL (KLOXXADO) 8 MG SPRAY NS PRN (11:28)
[2023-06-27] MEDS ORDERED: ACETAMINOPHEN 325 MG TABLET (FP) PO PRN (11:28)
[2023-06-27] MEDS ORDERED: P-EPHED 60MG/TRIPROLIDI 2.5MG TABLET PO PRN (11:28)
[2023-06-27] MEDS ORDERED: NALOXONE HCL 0.4 MG/ML VIAL IM PRN (11:28)
[2023-06-27] MEDS ORDERED: POLYETHYLENE GLYCOL (HEALTHYLAX) 3350 17 GM PACKET PO PRN (11:28)
[2023-06-27] MEDS ORDERED: methaDONE HCL 10 MG TABLET (FOR DETOX USE ONLY) PO ONE (11:45)
[2023-06-27] MEDS ORDERED: diazePAM 5 MG TABLET ONE (11:57)
[2023-06-27] MEDS ORDERED: methaDONE HCL 10 MG TABLET (FOR DETOX USE ONLY) ONE (11:58)
[2023-06-27] MEDS ORDERED: NICOTINE 14 MG/24 HOURS TOPICAL PATCH TD ONE (11:59)
[2023-06-27] MEDS ORDERED: amLODIPine BESYLATE 5 MG TABLET (FP) ONE (11:59)
[2023-06-27] MEDS ORDERED: levETIRAcetam 500 MG TABLET (FP) PO ONE (11:59)
[2023-06-27] MEDS ORDERED: LIDOCAINE 4% PATCH TP SCH (12:00)
[2023-06-27] MEDS: amLODIPine BESYLATE 5 MG TABLET (FP) PO SCH (12:05)
[2023-06-27] MEDS: diazePAM 5 MG TABLET PO SCH ×3 (12:05→22:20)
[2023-06-27] MEDS: levETIRAcetam XR 750 MG TAB PO SCH ×2 (12:06→22:17)
[2023-06-27] MEDS: NICOTINE 14 MG/24 HOURS TOPICAL PATCH TD SCH (12:06)
[2023-06-27] MEDS: LIDOCAINE 4% PATCH TP SCH (13:08)
[2023-06-27] MEDS ORDERED: MELATONIN 5 MG TABLETS PO SCH (22:00)
[2023-06-27] MEDS: LIDOCAINE PATCH REMOVAL MC SCH (22:18)
[2023-06-27] MEDS: THIAMINE HCL 100 MG TABLET (FP) PO SCH (22:18)
[2023-06-27] MEDS: MAGNESIUM HYDROX 2400MG/30ML ORAL SUSPENSION 30 ML CUP PO PRN (22:19)
[2023-06-27] MEDS: traZODone HCL 50 MG TABLET (FP) PO PRN (22:19)
[2023-06-28] MEDS: diazePAM 5 MG TABLET PO SCH ×4 (05:24→22:14)
[2023-06-28] MEDS: LIDOCAINE 4% PATCH TP SCH (10:27)
[2023-06-28] MEDS: levETIRAcetam XR 750 MG TAB PO SCH ×2 (10:29→22:13)
[2023-06-28] MEDS: NICOTINE 14 MG/24 HOURS TOPICAL PATCH TD SCH (10:29)
[2023-06-28] MEDS: amLODIPine BESYLATE 5 MG TABLET (FP) PO SCH (10:30)
[2023-06-28] MEDS: PRENATAL VITAMINS W/ FOLIC ACID TABLET (FP) PO SCH (10:30)
[2023-06-28] MEDS ORDERED: SODIUM PHOSPHATE/NA BIPHOS 133 ML ENEMA RC ONE (12:15)
[2023-06-28 12:23] LABS: HEMOGLOBIN 11.2 GM/dL (10.7-15.3); MCH 26.3 pg (25.7-33.7); MEAN CELL VOLUME 84.9 fl (80-96); MEAN PLT VOLUME 8.3 fl (7.5-11.1); PLATELET COUNT 310 10^3/uL (134-434); RBC 4.24 M/mm3 (3.60-5.2); RDW 15.1 % (11.6-15.6); WHITE BLOOD COUNT 4.8 K/mm3 (4.0-10.0)
[2023-06-28 12:34] LABS: POTASSIUM 4.6 mmol/L (3.5-5.1)
[2023-06-28 12:38] LABS: ALBUMIN 3.5 g/dl (3.4-5.0); BLOOD UREA NITROGEN 25.8 mg/dL (7-18); CALCIUM 8.5 mg/dL (8.5-10.1)
[2023-06-28 12:41] LABS: CREATININE 1.2 mg/dL (0.55-1.3)
[2023-06-28 12:43] LABS: BILIRUBIN,TOTAL 0.3 mg/dL (0.2-1); TOT PROT 6.9 g/dl (6.4-8.2)
[2023-06-28] MEDS: diazePAM 5 MG TABLET PO PRN (14:31)
[2023-06-28] MEDS: traZODone HCL 50 MG TABLET (FP) PO PRN (22:13)
[2023-06-28] MEDS: LIDOCAINE PATCH REMOVAL MC SCH (22:13)
[2023-06-28] MEDS: THIAMINE HCL 100 MG TABLET (FP) PO SCH (22:13)
[2023-06-28] MEDS: MAGNESIUM HYDROX 2400MG/30ML ORAL SUSPENSION 30 ML CUP PO PRN (22:16)
[2023-06-29] MEDS: diazePAM 5 MG TABLET PO PRN ×3 (03:14→17:05)
[2023-06-29] MEDS: diazePAM 5 MG TABLET PO SCH ×3 (05:19→22:20)
[2023-06-29] MEDS ORDERED: methaDONE HCL 10 MG TABLET (FOR DETOX USE ONLY) PO ONE (10:00)
[2023-06-29] MEDS: PRENATAL VITAMINS W/ FOLIC ACID TABLET (FP) PO SCH (10:37)
[2023-06-29] MEDS: LIDOCAINE 4% PATCH TP SCH (10:37)
[2023-06-29] MEDS: levETIRAcetam XR 750 MG TAB PO SCH ×2 (10:37→22:19)
[2023-06-29] MEDS: NICOTINE 14 MG/24 HOURS TOPICAL PATCH TD SCH (10:39)
[2023-06-29] MEDS: amLODIPine BESYLATE 5 MG TABLET (FP) PO SCH (10:40)
[2023-06-29] MEDS: MAGNESIUM HYDROX 2400MG/30ML ORAL SUSPENSION 30 ML CUP PO PRN (17:05)
[2023-06-29] MEDS: traZODone HCL 50 MG TABLET (FP) PO PRN (22:19)
[2023-06-29] MEDS: THIAMINE HCL 100 MG TABLET (FP) PO SCH (22:20)
[2023-06-29] MEDS: LIDOCAINE PATCH REMOVAL MC SCH (22:20)
[2023-06-30] MEDS: diazePAM 5 MG TABLET PO PRN (02:38)
[2023-06-30] MEDS: MAGNESIUM HYDROX 2400MG/30ML ORAL SUSPENSION 30 ML CUP PO PRN (05:49)
[2023-06-30] MEDS ORDERED: diazePAM 5 MG TABLET PO SCH (06:00)
[2023-06-30] MEDS: NICOTINE 14 MG/24 HOURS TOPICAL PATCH TD SCH (10:13)
[2023-06-30] MEDS: levETIRAcetam XR 750 MG TAB PO SCH (10:13)
[2023-06-30] MEDS: amLODIPine BESYLATE 5 MG TABLET (FP) PO SCH (10:13)
[2023-06-30] MEDS: PRENATAL VITAMINS W/ FOLIC ACID TABLET (FP) PO SCH (10:13)
[2023-06-30] MEDS: LIDOCAINE 4% PATCH TP SCH (10:14)
[2023-06-30 13:43] VITALS: BP 113/73; PULSE 91; RESP 16; TEMP 97.7
[2023-07-01] MEDS ORDERED: diazePAM 5 MG TABLET PO ONE (06:00)
[2023-07-01] MEDS ORDERED: methaDONE HCL 10 MG TABLET (FOR DETOX USE ONLY) PO ONE (10:00)
== END 2023-06-30 13:30 | disposition left against medical advice (07) | DRG 894 ==
LOC: YASAS 10:34 → Y3N 12:30
PROVIDERS: ADMIT Allergy & Immunology; ATTEND Surgery
PROC: HZ2ZZZZ Detoxification Services for Substance Abuse Treatment (ICD-10-PCS; principal; 2023-06-27)
DX: F11.23 Opioid dependence with withdrawal (principal); F19.282 Other psychoactive substance dependence with psychoactive substance-induced sleep disorder; F19.280 Other psychoactive substance dependence with psychoactive substance-induced anxiety disorder; F10.230 Alcohol dependence with withdrawal, uncomplicated; F17.210 Nicotine dependence, cigarettes, uncomplicated; F19.24 Other psychoactive substance dependence with psychoactive substance-induced mood disorder; B18.2 Chronic viral hepatitis C; G40.909 Epilepsy, unspecified, not intractable, without status epilepticus; I10 Essential (primary) hypertension; M54.50 Low back pain, unspecified; G89.29 Other chronic pain
CPT/HCPCS: 36415; 80053; 80307; 85027; 86780; 87635; 87811; Q0162

== ENCOUNTER 2023-10-03 04:02 | Inpatient (IN) | payer OTHER ==
[2023-10-03] MEDS ORDERED: MIDAZOLAM HCL 2 MG/2 ML SINGLE DOSE VIAL ONE (13:43)
[2023-10-03] MEDS ORDERED: PROPOFOL 20 ML ONE (13:43)
[2023-10-03] MEDS: ceFAZolin SODIUM 1 GM VIAL IVPB ONE (13:45)
[2023-10-03] MEDS ORDERED: ACETAMINOPHEN INJECTION 100 ML IVPB ONE ×2 (15:52→17:32)
[2023-10-03] MEDS ORDERED: KETOROLAC TROMETHAMINE 30 MG/1 ML VIAL ONE (15:54)
[2023-10-03 16:08] VITALS: BMI 21.4
[2023-10-03] MEDS ORDERED: oxyCODONE HCL 5 MG TABLET PO PRN (16:14)
[2023-10-03] MEDS ORDERED: ONDANSETRON 4 MG/2 ML VIAL IVPUSH PRN (16:14)
[2023-10-03] MEDS: LACTATED RINGERS SOLUTION 1,000 ML IV SCH (17:00)
[2023-10-03] MEDS ORDERED: ACETAMINOPHEN 325 MG TABLET (FP) PO PRN (18:45)
[2023-10-03] MEDS: ceFAZolin SODIUM 1 GM VIAL IVPB SCH (18:57)
[2023-10-03] MEDS: oxyCODONE HCL 5 MG TABLET PO PRN (19:53)
[2023-10-03] MEDS: CEFAZOLIN 1 GM in DEXTROSE 5%-WATER - 50 ML IVPB SCH (22:46)
[2023-10-04] MEDS: FINASTERIDE 5 MG TABLET (FP) PO SCH (09:55)
[2023-10-04 11:23] LABS: HEMATOCRIT 36.2 % (35.4-49); MCH 26.9 pg (25.7-33.7); MEAN CELL VOLUME 81.4 fl (80-96); MEAN PLT VOLUME 9.2 fl (7.5-11.1); PLATELET COUNT 194 10^3/uL (134-434); RBC 4.45 M/mm3 (4.00-5.60); RDW 14.1 % (11.9-15.9); WHITE BLOOD COUNT 12.7 K/mm3 (4.0-10.0)
[2023-10-04 12:15] LABS: POTASSIUM 4.4 mmol/L (3.5-5.1)
[2023-10-04 12:17] LABS: CALCIUM 8.8 mg/dL (8.5-10.1)
[2023-10-04 12:18] LABS: BLOOD UREA NITROGEN 15.9 mg/dL (7-18)
[2023-10-04 12:21] LABS: CREATININE 1.2 mg/dL (0.55-1.3)
[2023-10-04] MEDS: SULFAMETHOXAZOLE/TRIMETHOPRIM 800MG/160MG D.S. TABLET PO SCH (22:04)
[2023-10-05] MEDS: oxyCODONE HCL 5 MG TABLET PO ONE (00:11)
[2023-10-05] MEDS ORDERED: ACETAMINOPHEN 325 MG TABLET (FP) PO PRN ×2 (06:00→18:43)
[2023-10-05] MEDS: oxyCODONE HCL 5 MG TABLET PO PRN ×2 (06:16→20:06)
[2023-10-05 11:26] LABS: HEMATOCRIT 37.1 % (35.4-49); HEMOGLOBIN 12.1 GM/dL (11.7-16.9); MCH 26.6 pg (25.7-33.7); MCHC 32.6 g/dl (32.0-35.9); MEAN CELL VOLUME 81.5 fl (80-96); MEAN PLT VOLUME 10.1 fl (7.5-11.1); PLATELET COUNT 192 10^3/uL (134-434); RBC 4.55 M/mm3 (4.00-5.60); RDW 13.8 % (11.9-15.9); WHITE BLOOD COUNT 10.6 K/mm3 (4.0-10.0)
[2023-10-05] MEDS ORDERED: PROMETHAZINE HCL 25 MG/1 ML VIAL IVPB PRN (17:16)
[2023-10-05] MEDS ORDERED: ONDANSETRON 4 MG/2 ML VIAL IVPUSH PRN (17:16)
[2023-10-05] MEDS ORDERED: LACTATED RINGERS SOLUTION 1,000 ML IV SCH (17:30)
[2023-10-05] MEDS ORDERED: PROPOFOL 20 ML ONE (17:39)
[2023-10-05] MEDS ORDERED: LIDOCAINE HCL/PF 2% SDV 5ML VIAL ONE (17:39)
[2023-10-05] MEDS: CEFAZOLIN 1 GM in DEXTROSE 5%-WATER - 50 ML IVPB SCH (21:38)
[2023-10-05] MEDS: SULFAMETHOXAZOLE/TRIMETHOPRIM 800MG/160MG D.S. TABLET PO SCH (21:38)
[2023-10-06] MEDS: DEXTROSE 5%-0.45% SALINE 1,000 ML IV SCH (06:25)
[2023-10-06] MEDS: FINASTERIDE 5 MG TABLET (FP) PO SCH (09:49)
[2023-10-07 10:11] VITALS: BP 132/72; PULSE 81; RESP 16; TEMP 97.6
== END 2023-10-07 13:46 | disposition home or self-care (01) | DRG 714 ==
LOC: EDSEX → JASUSAT 04:02 → JASU-SURG 04:02 → JASUSAT 18:23 → J5S 18:24
PROVIDERS: ADMIT Urology; ATTEND Urology
PROC: 0VT08ZZ Resection of Prostate, Via Natural or Artificial Opening Endoscopic (ICD-10-PCS; principal; 2023-10-04)
PROC: 0TJB8ZZ Inspection of Bladder, Via Natural or Artificial Opening Endoscopic (ICD-10-PCS; 2023-10-05)
PROC: 0W3R8ZZ Control Bleeding in Genitourinary Tract, Via Natural or Artificial Opening Endoscopic (ICD-10-PCS; 2023-10-05)
PROC: 0T9B8ZZ Drainage of Bladder, Via Natural or Artificial Opening Endoscopic (ICD-10-PCS; 2023-10-05)
PROC: 0TCB8ZZ Extirpation of Matter from Bladder, Via Natural or Artificial Opening Endoscopic (ICD-10-PCS; 2023-10-05)
DX: N40.1 Benign prostatic hyperplasia with lower urinary tract symptoms (principal); R33.8 Other retention of urine; R31.0 Gross hematuria
CPT/HCPCS: 36415; 80048; 85027; 88305-TC; 94760; J0131

== ENCOUNTER 2023-10-10 12:00 | Inpatient (IN) | payer OTHER ==
[2023-10-10 12:53] VITALS: BMI 28.3
[2023-10-10] MEDS ORDERED: ACETAMINOPHEN 325 MG TABLET (FP) PO PRN (13:57)
[2023-10-10] MEDS ORDERED: BISMUTH SUBSALICYLATE 262 MG/15 ML BTL PO PRN (13:57)
[2023-10-10] MEDS ORDERED: guaiFENesin 600 MG TABLET.ER (FP) PO PRN (13:57)
[2023-10-10] MEDS ORDERED: POLYETHYLENE GLYCOL (HEALTHYLAX) 3350 17 GM PACKET PO PRN (13:57)
[2023-10-10] MEDS ORDERED: NALOXONE HCL (KLOXXADO) 8 MG SPRAY NS PRN (13:57)
[2023-10-10] MEDS ORDERED: NALOXONE HCL 0.4 MG/ML VIAL IM PRN (13:57)
[2023-10-10] MEDS ORDERED: MAG HYDROX/AL HYDROX/SIMETH 30 ML UNIT-DOSE CUP PO PRN (13:57)
[2023-10-10] MEDS ORDERED: BENZOCAINE/MENTHOL (CHLORASEPTIC ) LOZENGE MM PRN (13:57)
[2023-10-10] MEDS ORDERED: IBUPROFEN 600 MG TABLET (FP) PO PRN (13:57)
[2023-10-10] MEDS ORDERED: MAGNESIUM HYDROX 2400MG/30ML ORAL SUSPENSION 30 ML CUP PO PRN (13:57)
[2023-10-10] MEDS ORDERED: DICYCLOMINE HCL 10 MG CAPSULE PO PRN (13:57)
[2023-10-10] MEDS ORDERED: IBUPROFEN 400 MG TABLET (FP) PO PRN (13:57)
[2023-10-10] MEDS ORDERED: BENZONATATE 200 MG CAPSULE PO PRN (13:57)
[2023-10-10] MEDS ORDERED: NICOTINE POLACRILEX 2 MG GUM BUC PRN (13:57)
[2023-10-10] MEDS ORDERED: methaDONE HCL 10 MG TABLET (FOR DETOX USE ONLY) ONE (14:52)
[2023-10-10] MEDS: methaDONE HCL 10 MG TABLET (FOR DETOX USE ONLY) PO ONE (14:54)
[2023-10-10] MEDS ORDERED: diazePAM 5 MG TABLET ONE (15:00)
[2023-10-10] MEDS: diazePAM 5 MG TABLET PO PRN (15:01)
[2023-10-10] MEDS: MELATONIN 5 MG TABLETS PO SCH (22:01)
[2023-10-10] MEDS: THIAMINE HCL 100 MG TABLET (FP) PO SCH (22:01)
[2023-10-10] MEDS: levETIRAcetam 500 MG TABLET (FP) PO SCH (22:01)
[2023-10-10] MEDS: cloNIDine HCL 0.1 MG TABLET PO PRN (22:03)
[2023-10-11] MEDS: PRENATAL VITAMINS W/ FOLIC ACID TABLET (FP) PO SCH (10:22)
[2023-10-11] MEDS: amLODIPine BESYLATE 5 MG TABLET (FP) PO SCH (10:22)
[2023-10-11] MEDS: NICOTINE 14 MG/24 HOURS TOPICAL PATCH TD SCH (10:23)
[2023-10-11 10:52] LABS: HEMATOCRIT 32.9 % (32.4-45.2); HEMOGLOBIN 10.7 GM/dL (10.7-15.3); MCH 26.1 pg (25.7-33.7); MCHC 32.5 g/dl (32.0-36.0); MEAN CELL VOLUME 80.5 fl (80-96); MEAN PLT VOLUME 8.3 fl (7.5-11.1); PLATELET COUNT 215 10^3/uL (134-434); RBC 4.09 M/mm3 (3.60-5.2); RDW 13.7 % (11.6-15.6); WHITE BLOOD COUNT 4.8 K/mm3 (4.0-10.0)
[2023-10-11 11:43] LABS: CHLORIDE 107 mmol/L (98-107); POTASSIUM 4.5 mmol/L (3.5-5.1); SODIUM 141 mmol/L (136-145)
[2023-10-11 11:46] LABS: ALBUMIN 2.9 g/dl (3.4-5.0); ANION GAP 5 mmol/L (4-13); CALCIUM 8.4 mg/dL (8.5-10.1); CO2 29 mmol/L (21-32); GLUCOSE,RANDOM 93 mg/dL (74-106)
[2023-10-11 11:48] LABS: BLOOD UREA NITROGEN 18.2 mg/dL (7-18)
[2023-10-11 11:49] LABS: SGPT/ALT 10 U/L (13-61)
[2023-10-11 11:50] LABS: BILIRUBIN,TOTAL 0.2 mg/dL (0.2-1); CREATININE 1.2 mg/dL (0.55-1.3); SGOT/AST 12 U/L (15-37); TOT PROT 6.2 g/dl (6.4-8.2)
[2023-10-11 11:52] LABS: ALK PHOS 147 U/L (45-117)
[2023-10-12] MEDS: methaDONE HCL 10 MG TABLET (FOR DETOX USE ONLY) PO ONE (10:14)
[2023-10-13] MEDS: BACLOFEN 10 MG TABLET (FP) PO PRN (16:54)
[2023-10-14] MEDS ORDERED: levETIRAcetam 250 MG TABLET PO ONE (09:46)
[2023-10-14] MEDS: methaDONE HCL 10 MG TABLET (FOR DETOX USE ONLY) PO ONE (09:52)
[2023-10-14] MEDS: cloNIDine HCL 0.1 MG TABLET PO PRN (11:55)
[2023-10-15 02:10] VITALS: RESP 16
[2023-10-15 07:45] VITALS: BP 150/79; PULSE 74; TEMP 97.7
== END 2023-10-15 08:50 | disposition home or self-care (01) | DRG 773 ==
LOC: YASAS 12:00 → EDSEX 12:00 → Y6N 15:01
PROVIDERS: ADMIT Allergy & Immunology; ATTEND Surgery
PROC: HZ2ZZZZ Detoxification Services for Substance Abuse Treatment (ICD-10-PCS; principal; 2023-10-10)
DX: F11.23 Opioid dependence with withdrawal (principal); F10.20 Alcohol dependence, uncomplicated; F17.210 Nicotine dependence, cigarettes, uncomplicated; G40.909 Epilepsy, unspecified, not intractable, without status epilepticus; I10 Essential (primary) hypertension; N28.9 Disorder of kidney and ureter, unspecified; M54.50 Low back pain, unspecified; G89.29 Other chronic pain; Z86.73 Personal history of transient ischemic attack (TIA), and cerebral infarction without residual deficits; Z87.19 Personal history of other diseases of the digestive system
CPT/HCPCS: 36415; 80053; 80307; 82962; 85027; 86780; 87635; 93005; 93010; J0475

== ENCOUNTER 2023-10-14 18:29 | Emergency (ER) | payer OTHER ==
[2023-10-14 18:46] VITALS: BP 131/84; PULSE 90; RESP 20; TEMP 97.7; BMI 26.4
[2023-10-14] MEDS ORDERED: levETIRAcetam 500 MG TABLET (FP) PO ONE (19:52)
[2023-10-14] MEDS: levETIRAcetam 500 MG TABLET (FP) PO ONE (21:02)
== END 2023-10-14 21:18 | disposition home or self-care (01) ==
LOC: JER 18:29
DX: G40.909 Epilepsy, unspecified, not intractable, without status epilepticus (principal)
CPT/HCPCS: 70450-TC; 99284-25